=== PATIENT | male | born 1955 | race Caucasian/White ===

== ENCOUNTER 2020-06-10 07:34 | Inpatient (IN) | payer OTHER ==
[~2020-06-10] VITALS: Ht 182.9 cm; Wt 76.5 kg
[2020-06-10] MEDS ORDERED: SODIUM CHLORIDE 0.9% 1,000 ML IV ONE ×2 (08:17→15:30)
[2020-06-10 09:52] LABS: Urine Bacteria NONE SEEN /hpf (None Seen); Urine Blood 1+ /uL (Negative); Urine Hyaline Cast FEW /lpf (0 - 2); Urine Specific Gravity 1.014 (1.001-1.035); Urine WBC 5 /hpf (0 - 3)
[2020-06-10 10:56] LABS: Hematocrit 25.5 % (41.0-53.0); Hemoglobin 8.8 g/dL (13.5-17.5); Mean Corpuscular Hemoglobin 33.4 pg (28.0-32.0); Mean Corpuscular Hgb Conc. 34.5 g/dL (32.0-36.0); Mean Corpuscular Volume 96.7 fL (80.0-100.0); Platelet Count (auto) 248 10^3/uL (140-450); Red Blood Cells 2.63 10^6/uL (4.5-5.90); Red Cell Distribution Width 14.8 % (11.8-14.3); White Blood Cell 9.4 10^3/uL (4.4-10.8)
[2020-06-10 10:58] LABS: Potassium 3.6 mmol/L (3.5-5.1)
[2020-06-10 11:05] LABS: Band Neutrophils % (manual) 0; Basophils % (manual) 0 (0.0-2.0); Metamyelocytes % 0; Promyelocytes % 0
[2020-06-10 11:06] LABS: Blast Cells 0; Reactive Lymphocytes 0
[2020-06-10 11:08] LABS: Albumin 2.4 g/dL (3.4-5.0); BUN/Creatinine Ratio 21.2; Total Protein 10.6 g/dL (6.4-8.2)
[2020-06-10 11:17] LABS: Calcium 13.1 mg/dL (8.5-10.1)
[2020-06-10 11:40] LABS: Partial Thromboplastin Time 23.3 sec (23.0-31.2)
[2020-06-10 11:44] LABS: INR 1.39 (0.9-1.15)
[2020-06-10] MEDS ORDERED: ONDANSETRON HCL 4 MG/2 ML VIAL IV ONE (11:45)
[2020-06-10] MEDS ORDERED: MORPHINE SULFATE 4 MG/ML SYR/VIAL IV ONE (11:45)
[2020-06-10] MEDS ORDERED: PIPERACILLIN-TAZOB 3.375GM 100 ML IV ONE (12:15)
[2020-06-10] MEDS ORDERED: ASPirin 81 mg TAB PO ONE (12:15)
[2020-06-10] MEDS ORDERED: ENOXAPARIN SOD 80 MG/0.8ML SYRINGE SC ONE (12:15)
[2020-06-10] MEDS ORDERED: methylPREDNISolone SOD SUCC 40 MG/ML VL IV ONE (12:30)
[2020-06-10] MEDS ORDERED: CYCLOBENZAPRINE HCL 10 MG TAB PO ONE (12:30)
[2020-06-10] MEDS ORDERED: ATORVASTATIN 20 MG TAB PO ONE (12:30)
[2020-06-10] MEDS ORDERED: METOPROLOL SUCCINATE XL 50 MG TAB PO ONE (12:30)
[2020-06-10] MEDS ORDERED: CYCLOBENZAPRINE HCL 10 MG TAB PO PRN (12:30)
[2020-06-10] MEDS ORDERED: FUROSEMIDE 20 MG/2 ML VIAL IV ONE (12:30)
[2020-06-10] MEDS ORDERED: ALUM & MAG HYDROX-SIMETH LIQ(MAALOX) 30 ML PO PRN (12:45)
[2020-06-10] MEDS ORDERED: MORPHINE SULF INJ 2 MG/ML SYRINGE 1ML IV PRN ×2 (12:45)
[2020-06-10] MEDS ORDERED: ONDANSETRON HCL 4 MG/2 ML VIAL IV PRN (12:45)
[2020-06-10] MEDS ORDERED: DOCUSATE SOD 100 MG CAP PO PRN (12:45)
[2020-06-10] MEDS ORDERED: HYDROcodone-ACET 5/325MG TAB PO PRN (12:45)
[2020-06-10] MEDS ORDERED: DEXTROSE (50%) 50ML SYRG IV PRN (12:45)
[2020-06-10] MEDS ORDERED: NITROGLYCERIN 0.4 MG SL TAB SL PRN (12:45)
[2020-06-10] MEDS ORDERED: ACETAMINOPHEN 325 MG TAB PO PRN (12:45)
[2020-06-10] MEDS ORDERED: CALCITONIN 200 UNIT/SPRAY NASAL ONE ×2 (12:45→19:15)
[2020-06-10 12:54] LABS: Eosinophils % (manual) 1 (0-7); Lymphocytes % (manual) 4 (10.0-50.0); Monocytes % (manual) 14 (0-12); Myelocytes % 1
[2020-06-10] MEDS ORDERED: HALOPERIDOL LACTATE 5 MG/ML INJ VIAL IM ONE (13:15)
[2020-06-10] MEDS ORDERED: LORazepam 0.5 MG TAB PO ONE (13:15)
[2020-06-10] MEDS ORDERED: CARVEDILOL 3.125 MG TAB PO ONE (13:30)
[2020-06-10] MEDS ORDERED: AZITHROMYCIN 500MG/ 250ML 250 ML IV ONE (13:30)
[2020-06-10] MEDS ORDERED: LOSARTAN POTASSIUM 50 MG TAB PO ONE (13:30)
[2020-06-10 14:05] LABS: Alcohol, Urine < 3.0 mg/dL (0-10); Amphetamine Screen, Urine NEGATIVE (NEGATIVE); Barbiturate Scree,Urine NEGATIVE (NEGATIVE); Benzodiazephine Screen, Urine NEGATIVE (NEGATIVE); Cannabinoid Screen, Urine NEGATIVE (NEGATIVE); Cocaine Screen, Urine NEGATIVE (NEGATIVE); Phencyclidine Screen, Urine NEGATIVE (NEGATIVE)
[2020-06-10 14:13] LABS: Opiate Scree,Urine POSITIVE (NEGATIVE)
[2020-06-10] MEDS: methylPREDNISolone SOD SUCC 40 MG/ML VL IV SCH ×2 (14:23→22:26)
[2020-06-10] MEDS: SODIUM CHLORIDE 0.9% 1,000 ML IV SCH (15:04)
[2020-06-10] MEDS ORDERED: NOREPINEPHRINE 8 MG/250ML KIT 250 ML IV ONE (16:26)
[2020-06-10] MEDS: NOREPINEPHRINE 8 MG/250ML KIT 250 ML IV SCH (16:30)
[2020-06-10] MEDS: ACCU-CHEK COMFORT CURVE STRIP VI SCH ×2 (17:00→22:17)
[2020-06-10] MEDS: InsuLIN REG 1unit/0.01ml Soln (100units/ml) SC SCH ×2 (17:15→22:26)
[2020-06-10] MEDS: FUROSEMIDE 20 MG/2 ML VIAL IV SCH (18:00)
[2020-06-10] MEDS ORDERED: MIDAZOLAM DRIP 50 mg/50mL 50 ML IV ONE (18:29)
[2020-06-10] MEDS ORDERED: ETOMIDATE (2MG/ML) 20ML VIAL IV ONE ×2 (18:30)
[2020-06-10] MEDS ORDERED: SUCCINYLCHOLINE CHLORIDE 20 MG/ML 10ML VIAL IV ONE ×2 (18:30)
[2020-06-10] MEDS: PROPOFOL 100 ML IV SCH (18:49)
[2020-06-10] MEDS: MIDAZOLAM DRIP 50 mg/50mL 50 ML IV SCH ×2 (19:00→22:56)
[2020-06-10] MEDS ORDERED: PROPOFOL 100 ML IV ONE (19:07)
[2020-06-10] MEDS: ATORVASTATIN 20 MG TAB PO SCH (22:00)
[2020-06-10] MEDS: CARVEDILOL 3.125 MG TAB PO SCH (22:00)
[2020-06-10] MEDS ORDERED: methylPREDNISolone SOD SUCC 40 MG/ML VL IV SCH (22:00)
[2020-06-10 22:07] VITALS: BP 114/56
[2020-06-11] VITALS (7 sets, daily range): BP systolic 108–152; BP diastolic 58–73
[2020-06-11] MEDS: SODIUM CHLORIDE 0.9% 1,000 ML IV SCH ×2 (02:45→14:56)
[2020-06-11] MEDS: MIDAZOLAM DRIP 50 mg/50mL 50 ML IV SCH (06:28)
[2020-06-11] MEDS: NOREPINEPHRINE 8 MG/250ML KIT 250 ML IV SCH (06:28)
[2020-06-11] MEDS: InsuLIN REG 1unit/0.01ml Soln (100units/ml) SC SCH ×4 (07:00→22:00)
[2020-06-11] MEDS: ACCU-CHEK COMFORT CURVE STRIP VI SCH ×4 (07:00→22:25)
[2020-06-11] MEDS: FUROSEMIDE 20 MG/2 ML VIAL IV SCH (07:02)
[2020-06-11] MEDS: methylPREDNISolone SOD SUCC 40 MG/ML VL IV SCH (07:03)
[2020-06-11] MEDS ORDERED: cefTRIAXone 1GM/50ML D5W 50 ML IV SCH (09:00)
[2020-06-11] MEDS: CARVEDILOL 3.125 MG TAB PO SCH (10:00)
[2020-06-11] MEDS: ASPirin 81 mg TAB PO SCH (10:00)
[2020-06-11] MEDS ORDERED: LOSARTAN POTASSIUM 50 MG TAB PO SCH (10:00)
[2020-06-11] MEDS ORDERED: AZITHROMYCIN 500MG/ 250ML 250 ML IV SCH (10:00)
[2020-06-11] MEDS ORDERED: DOXYCYCLINE 100MG/250ML 250 ML IV ONE (14:15)
[2020-06-11 14:49] LABS: Basophils # (auto) 0 10 ^3/uL (0-0.2); Basophils % (auto) 0.1 % (0.0-2.0); Eosinophils # (auto) 0 10 ^3/uL (0-0.8); Lymphocytes # (auto) 0.5 10 ^3/uL (0.4-5.4); Lymphocytes % (auto) 4.5 % (10.0-50.0); White Blood Cell 11.5 10^3/uL (4.4-10.8)
[2020-06-11 14:52] LABS: Hematocrit 26.1 % (41.0-53.0); Hemoglobin 8.3 g/dL (13.5-17.5); Mean Corpuscular Hemoglobin 31.9 pg (28.0-32.0); Mean Corpuscular Hgb Conc. 31.9 g/dL (32.0-36.0); Mean Corpuscular Volume 100.1 fL (80.0-100.0); Monocytes # (auto) 1.2 10 ^3/uL (0-1.3); Monocytes % (auto) 10.6 % (0.0-12.0); Neutrophils # (auto) 9.8 10 ^3/uL (1.6-8.6); Neutrophils % (auto) 84.8 % (37.0-80.0); Nucleated Red Blood Cells % 0.1 %; Platelet Count (auto) 231 10^3/uL (140-450); Red Cell Distribution Width 14.9 % (11.8-14.3)
[2020-06-11 15:09] LABS: Albumin 1.9 g/dL (3.4-5.0); Calcium 11.4 mg/dL (8.5-10.1)
[2020-06-11 15:14] LABS: BUN/Creatinine Ratio 21.8; Bilirubin, Total 0.5 mg/dL (0.2-1.0); Total Protein 10.2 g/dL (6.4-8.2)
[2020-06-11] MEDS: MEROPENEM 500MG IVPB 50 ML IV SCH (17:02)
[2020-06-11] MEDS: PROPOFOL 100 ML IV SCH (17:08)
[2020-06-11] MEDS: ATORVASTATIN 20 MG TAB PO SCH (22:26)
[2020-06-11] MEDS: DOXYCYCLINE 100MG/250ML 250 ML IV SCH (22:27)
[2020-06-12] VITALS (59 sets, daily range): BP systolic 106–196; BP diastolic 64–121
[2020-06-12] MEDS: SODIUM CHLORIDE 0.9% 1,000 ML IV SCH ×2 (04:04→15:30)
[2020-06-12] MEDS: MEROPENEM 500MG IVPB 50 ML IV SCH ×2 (05:20→17:00)
[2020-06-12] MEDS: ACCU-CHEK COMFORT CURVE STRIP VI SCH ×4 (06:03→21:34)
[2020-06-12] MEDS: InsuLIN REG 1unit/0.01ml Soln (100units/ml) SC SCH ×4 (06:04→21:34)
--- NOTE | 2020-06-12 06:40 | NUR ---
Respiratory note: RECEIVED PATIENT ON V15 V200 VENT ORALLY INTUBATED WITH AND 8.0 ETT SECURED VIA SAM AT THE 24CM MARKING AT THE LIP, AND MECHANICALLY VENTILATED WITH THE CHARTED SETTINGS. SPO2 97%, LUNG SOUNDS DIM T/O, SMALL AMOUNT OF THICK PANDYA SECRETIONS WHEN SUCTIONED. SKIN IS WARM/DRY TO THE TOUCH AND IS INTACT NEAR SAM SITE. PITTING EDEMA NOTED IN BILATERAL UPPER EXTREMITIES. NO NEW AM CXR TO ASSESS. PATIENT IS UNRESPONSIVE TO BOTH VERBAL/TACTILE STIMULI AND IS SEDATED ON A VERSED DRIP. HE IS RESTING COMFORTABLY AND TOLERATING VENT WELL, NO CHANGES MADE. VENT PLUGGED INTO RED OUTLET AND ALL ALARMS ARE SET AND AUDIBLE. WILL CONTINUE TO ASSESS PATIENT WELL VENTILATOR FUNCTION. ABG DRAWN AT THIS TIME.
[2020-06-12 07:37] LABS: Hematocrit 28.2 % (41.0-53.0); Hemoglobin 9.4 g/dL (13.5-17.5); Mean Corpuscular Hgb Conc. 33.2 g/dL (32.0-36.0); Mean Corpuscular Volume 99.3 fL (80.0-100.0); Platelet Count (auto) 302 10^3/uL (140-450); Red Blood Cells 2.84 10^6/uL (4.5-5.90); Red Cell Distribution Width 14.7 % (11.8-14.3); White Blood Cell 14.8 10^3/uL (4.4-10.8)
[2020-06-12 07:46] LABS: Basophils % (manual) 0 (0.0-2.0); Blast Cells 0; Eosinophils % (manual) 0 (0-7); Metamyelocytes % 0; Myelocytes % 0; Promyelocytes % 0; Reactive Lymphocytes 0
[2020-06-12 07:55] LABS: Albumin 2.1 g/dL (3.4-5.0); Calcium 10.5 mg/dL (8.5-10.1); Potassium 3.8 mmol/L (3.5-5.1)
[2020-06-12 07:59] LABS: BUN/Creatinine Ratio 25.8; Bilirubin, Total 0.4 mg/dL (0.2-1.0); Total Protein 10.6 g/dL (6.4-8.2)
[2020-06-12 08:11] LABS: Band Neutrophils % (manual) 3; Lymphocytes % (manual) 1 (10.0-50.0); Monocytes % (manual) 4 (0-12)
[2020-06-12] MEDS: ASPirin 81 mg TAB PO SCH (10:00)
[2020-06-12] MEDS: DOXYCYCLINE 100MG/250ML 250 ML IV SCH ×2 (10:00→21:52)
--- NOTE | 2020-06-12 10:10 | NUR ---
ON UNIT Patient brought to ICU. Moved to ICU bed without issues. Patient attached to ICU monitors and vent. Physical assessment complete.
--- NOTE | 2020-06-12 10:45 | NUR ---
ROUNDING Dr. Thomas rounding.
[2020-06-12 11:11] LABS: Lactic Acid w/Reflex 2.3 mmol/L (0.4-2.0)
[2020-06-12] MEDS: amLODIPine BESYLATE 5 MG TAB PO SCH (11:45)
--- NOTE | 2020-06-12 11:45 | NUR ---
ROUNDING Dr. Justa hall.
--- NOTE | 2020-06-12 12:27 | NUR ---
FAMILY UPDATED Spoke to Casie, patients daughter, updated on patient status. All questions and concerns addressed. Daughter gave me information about patients oncologist, Dr. Stinson [phone].
[2020-06-12] MEDS: MIDAZOLAM DRIP 50 mg/50mL 50 ML IV SCH ×2 (13:00→18:31)
--- NOTE | 2020-06-12 13:55 | NUR ---
SPOKE TO [facility] Patient is COVID negative. [facility] double typing checker, patient is negative from rapid and send out.
[2020-06-12] MEDS: NOREPINEPHRINE 8 MG/250ML KIT 250 ML IV SCH (14:02)
[2020-06-12] MEDS ORDERED: ENOXAPARIN SOD 40 MG/0.4 ML SYRINGE SC ONE (15:30)
[2020-06-12 16:06] LABS: Amylase 25 U/L (25-115); Lipase 801 U/L (73-393)
[2020-06-12] MEDS: PROPOFOL 100 ML IV SCH (18:49)
--- NOTE | 2020-06-12 19:30 | NUR ---
Opening Shift Note Received pt on mechanical ventilator sedated on versed. Pt does have positive cough/gag and will breathe over ventilator when stimulated. Pupils 4 and sluggish. Full assessment done see interventions. Gaspar catheter intact draining to gravity. All alarms on and audible. Will continue to monitor closely.
[2020-06-12] MEDS: ATORVASTATIN 20 MG TAB PO SCH (21:53)
--- NOTE | 2020-06-12 22:00 | NUR ---
[facility] Hospitalist. Pt maxed on versed and alarming ventilator while stacking breaths. Elevated B/P.
--- NOTE | 2020-06-12 22:38 | NUR ---
Hospitalist returned call. New order for Fent. Hospitalist aware of elevated b/p sys in 190's. Stated Fentanyl should decrease B/P.
[2020-06-12] MEDS: fentaNYL Drip 2500mCg/250mlNS 250 ML IV SCH (22:39)
[2020-06-12] MEDS ORDERED: fentaNYL Drip 2500mCg/250mlNS 250 ML IV ONE (22:43)
--- NOTE | 2020-06-12 23:51 | NUR ---
B/P sys in 140's now with added sedation.
[2020-06-13] VITALS (103 sets, daily range): BP systolic 74–182; BP diastolic 36–101
[2020-06-13] MEDS: MIDAZOLAM DRIP 50 mg/50mL 50 ML IV SCH ×2 (03:25→07:26)
[2020-06-13 04:13] LABS: Basophils # (auto) 0 10 ^3/uL (0-0.2); Basophils % (auto) 0.1 % (0.0-2.0); Eosinophils # (auto) 0 10 ^3/uL (0-0.8); Hemoglobin 9.9 g/dL (13.5-17.5); Lymphocytes # (auto) 0.5 10 ^3/uL (0.4-5.4); Lymphocytes % (auto) 3.3 % (10.0-50.0); Mean Corpuscular Volume 99.8 fL (80.0-100.0); Monocytes # (auto) 2.2 10 ^3/uL (0-1.3); Monocytes % (auto) 13.5 % (0.0-12.0); Neutrophils # (auto) 13.7 10 ^3/uL (1.6-8.6); Neutrophils % (auto) 83.1 % (37.0-80.0); Nucleated Red Blood Cells % 0.1 %; Platelet Count (auto) 341 10^3/uL (140-450); Red Blood Cells 3.01 10^6/uL (4.5-5.90); Red Cell Distribution Width 15.2 % (11.8-14.3); White Blood Cell 16.4 10^3/uL (4.4-10.8)
[2020-06-13 04:31] LABS: Potassium 4.4 mmol/L (3.5-5.1)
[2020-06-13 04:37] LABS: Calcium 9.9 mg/dL (8.5-10.1)
[2020-06-13] MEDS: MEROPENEM 500MG IVPB 50 ML IV SCH (05:00)
[2020-06-13] MEDS: HYDROmorphone HCL 2 MG/ML VL IV PRN (05:30)
--- NOTE | 2020-06-13 05:30 | NUR ---
Elimination/Assessment Pt's urine output noted to be minimal. Pt's lower abdomen firm to palpation. Walker catheter hard to flush. Walker catheter taken out with clogged tube. New walker catheter inserted with immediate urine output of 800 cc's. Urine yellow and cloudy.
--- NOTE | 2020-06-13 06:22 | NUR ---
B/P systolic in the 60's, levophed gtt started and titrating down on sedation. See IV spreadsheet for details.
[2020-06-13] MEDS: InsuLIN REG 1unit/0.01ml Soln (100units/ml) SC SCH ×4 (07:00→22:00)
[2020-06-13] MEDS: ACCU-CHEK COMFORT CURVE STRIP VI SCH ×4 (07:26→22:00)
--- NOTE | 2020-06-13 07:30 | NUR ---
OPENING NOTE RECEIVED REPORT FROM BONDING MACHINE OPERATOR RN. PT IS INTUBATED AND SEDATED. NO S/S OF DISTRESS NOTED AT THIS TIME. VS STABLE. BED IS LOCKED AT LOWEST POSITION AND SIDE RAILS ARE UP. WILL CONTINUE TO MONITOR.
--- NOTE | 2020-06-13 09:15 | NUR ---
DR CRANDALL AT BEDSIDE DISCUSSED PT STATUS AND POC. NO NEW ORDERS RECEIVED, WILL CONTINUE TO MONITOR.
[2020-06-13] MEDS: ASPirin 81 mg TAB PO SCH (09:35)
[2020-06-13] MEDS: LINEZOLID 600MG/300ML 300 ML IV SCH ×3 (09:35→22:00)
--- NOTE | 2020-06-13 09:45 | NUR ---
DR ELIZONDO AT BEDSIDE DISCUSSED PT STATUS AND POC. DR RECOMMENDED SEDATION VACATION AND CPAP TRIAL. OKAY WITH FENTANYL STAYING ON AT A LOW DOSE. WILL CONTINUE TO MONITOR.
[2020-06-13] MEDS ORDERED: ENOXAPARIN SOD 40 MG/0.4 ML SYRINGE SC SCH (10:00)
[2020-06-13] MEDS: amLODIPine BESYLATE 5 MG TAB PO SCH (10:00)
--- NOTE | 2020-06-13 10:30 | NUR ---
costumer at bedside pictures taken by pattern chain maker supervisor
--- NOTE | 2020-06-13 10:30 | NUR ---
DAUGHTER ON THE PHONE DISCUSSED PT STATUS AND POC. ALL QUESTIONS AND CONCERNS ADDRESSED.
--- NOTE | 2020-06-13 10:35 | NUR ---
DR ADAMS DISCUSSED PT STATUS AND POC. PER DR ADAMS IF PATIENT DOES NOT TOLERATE CPAP PT TO BE SEDATED AGAIN AND STARTED ON TUBE FEEDING PER DIETARY RECOMMENDATION.
--- NOTE | 2020-06-13 10:55 | NUR ---
RADHA FROM DIETARY AT BEDSIDE RADHA RECOMMENDS GLUCERNA 1.2CAL WITH A GOAL RATE OF 70ML/HR.
--- NOTE | 2020-06-13 11:00 | NUR ---
WOUND CARE NOTE: IN TO SEE PATIENT AT THIS TIME PER WOUND CARE CONSULT REQUEST. PATIENT WAS NOTED UPON ASSESSMENT TO HAVE MULTIPLE SKIN INTEGRITY ISSUES. PATIENT WAS ADMITTED TO [facility] WITH DIAGNOSIS OF ACUTE INTERSTITIAL BILATERAL MULTIFOCAL PNA WITH GROUND GLASS IMAGING. PATIENT IS INTUBATED, SEDATED. CURRENT RADHA SCORE IS 11. PATIENT PRESENTED TO ER AFTER FALLING WHILE AMBULATING WITH HIS WALKER. HE LANDED ON HIS BACK ON THE FLOOR. UNSURE OF THE AMOUNT OF TIME ON FLOOR. PATIENT HAS MULTIPLE CO-MORBIDITIES, INCLUDING: ACUTE KIDNEY INJURY WITH CHRONIC KIDNEY DISEASE, HYPER CALCEMIA, MULTIPLE MYELOMA, ACUTE RESPIRATORY FAILURE, PNA, CAD WITH S/P CABG, ANEMIA, MULTIPLE STRESS FRACTURES TO HIS SPINE UPON RADIOLOGICAL STUDIES. PATIENT IS RECEIVING VASOPRESSORS TO MAINTAIN HIS BLOOD PRESSURE. PATIENT RESTING ON ICU LOW AIRLOSS MATTRESS. HE IS NOTED TO HAVE MOTTLING/CYANOTIC SKIN TO BILATERAL FEET/HEELS. SKIN IS COLD TO TOUCH, BLUE/PURPLE MOTTLING NOTED. RIGHT ANKLE HAS SMALL 1 X 1 CM INTACT DTI NOTED. LEFT ALL OPEN TO AIR, FEET/HEELS OFFLOADED UTILIZING PILLOWS. PATIENT ALSO NOTED TO HAVE ERYTHEMIC SACRUM/BUTTOCKS, WITH BRIGHT RED BLANCHABLE SKIN TO DARK RED TO LIGHT PURPLE NOTED THAT IS NON BLANCHING. THERE IS SMALL SERUM BLISTER TO THE RIGHT SACRUM, OPEN BLISTER TO THE LEFT BUTTOCK. ZGUARD, OPTIFOAM GENTLE SACRAL DRESSING APPLIED. SKIN/WOUND CARE PLAN IMPLEMENTED. PATIENT WOULD BENEFIT FROM: SIDE TO SIDE ONLY POSITIONING, AVOIDING SUPINE; FREQUENT TURN SCHEDULE, Q 1-2 HOURS, PRN CONDITION PERMITS, WITH PRESSURE REDISTRIBUTION USING PILLOWS/WEDGES; BID/PRN APPLICATION WITH MOISTURE BARRIER CREAM, OPTIFOAM GENTLE SACRAL DRESSING, DIETARY CONSULT FOR PRESSURE INJURY TO SACRUM/INTUBATION STATUS, SKIN/WOUND CARE PLAN, CONTINUE TO REST ON LOW AIRLOSS ICU MATTRESS, TRANSFERRING TO AIR MATTRESS UPON TRANSFER TO REINALDO OR TELE, CONTINUED MONITORING BY WOUND CARE TEAM. Addendum: 06/13/20 at 1448 by Prachi Falcon RN Amended: Links added.
--- NOTE | 2020-06-13 11:14 | NUR ---
PICC LINE CONSENT TWO NURSE TELEPHONE CONSENT WITH DAUGHTER IVONNE LAWS. AMANDA LORENZ AND JOIE LORENZ
--- NOTE | 2020-06-13 13:15 | NUR ---
DAUGHTER IVONNE ON THE PHONE UPDATED PT STATUS AND POC. ALL QUESTIONS AND CONCERNS ADDRESSED.
--- NOTE | 2020-06-13 15:39 | NUR ---
Nutrition Assessment Notes Please refer to link for full assessment notes. Est Energy needs: 0720-6148 kcals (23-25 kcal/kgBW) Est Protein needs: 102-136 gms/day (1.2-1.6 gm/kgBW) d/t respiratory distress Will continue to monitor and reassess prn. Addendum: 06/13/20 at [address] Amended: Links added.
--- NOTE | 2020-06-13 15:45 | NUR ---
DAUGHTER IVONNE ON THE PHONE UPDATED PT STATUS AND POC. ALL QUESTIONS AND CONCERNS ADDRESSED.
[2020-06-13 16:06] LABS: INR 1.32 (0.9-1.15)
[2020-06-13] MEDS: fentaNYL Drip 2500mCg/250mlNS 250 ML IV SCH (16:26)
[2020-06-13] MEDS: NOREPINEPHRINE 8 MG/250ML KIT 250 ML IV SCH (16:30)
--- NOTE | 2020-06-13 17:00 | NUR ---
PICC LINE RN AT BEDSIDE KESHA CHA AT BEDSIDE FOR PICC LINE PLACEMENT
[2020-06-13] MEDS: SODIUM CHLORIDE 0.9% 1,000 ML IV SCH (17:53)
[2020-06-13] MEDS: MEROPENEM 1GM IVPB 100 ML IV SCH (17:53)
[2020-06-13] MEDS ORDERED: LIDOCAINE 1% (LOCAL ANESTH.) PF 5ml SDV ID ONE (18:00)
--- NOTE | 2020-06-13 18:04 | NUR ---
PICC line placement Patient significant other educated on need for PICC line placement. All risks and benefits explained and all questions and concerns addressed prior to procedure. Noted past medical history and allergies with no contraindications. INR and Plt counts within acceptable range. 5 fr PICC line inserted via RIGHT BRACHIAL vein using [employer] US and Tip Location System. Sterile technique with maximum barrier precautions utilized. Blood return obtained from each of THE 3 lumens and each flushed easily with NS using proper technique. PICC secured with Stat-lock; biodisc and occlusive dressing applied. Stat portable chest x-ray obtained for PICC tip placement. *Baseline Arm Circumference 30 CM, INTERNAL LENGTH 43 CM, EXTERNAL LENGTH 0 CM. PICC lot # [id number]. Note:
--- NOTE | 2020-06-13 18:06 | NUR ---
OK to use PICC line Xray completed. OK to use PICC line . PRIMARY RN NOTIFIED
[2020-06-13] MEDS ORDERED: Glucerna 1.2 Cal 1Liter BOTTLE GT SCH (18:15)
--- NOTE | 2020-06-13 18:29 | NUR ---
daughter on the phone updated pt status and poc. all questions and concerns addressed.
--- NOTE | 2020-06-13 19:45 | NUR ---
Opening Shift Note Received pt on mechanical ventilator sedated on Fentanyl. Pt does have positive cough/gag, pupils 3 and brisk. Full assessment done see interventions. Gaspar catheter intact draining to gravity. All alarms on and audible. Will continue to monitor closely.
[2020-06-13] MEDS: SODIUM CHLOR 0.9% PF (SALINE LOCK) 10ML VIAL/SYR IV SCH (22:00)
[2020-06-13] MEDS: ENOXAPARIN SOD 80 MG/0.8ML SYRINGE SC SCH (22:00)
[2020-06-13] MEDS: ATORVASTATIN 20 MG TAB PO SCH (22:00)
--- NOTE | 2020-06-13 22:30 | NUR ---
Family Daughter called for update. Password verified. and update given. all questions and concerns addressed at this time
[2020-06-14] VITALS (103 sets, daily range): BP systolic 91–156; BP diastolic 44–80
[2020-06-14] MEDS: SODIUM CHLORIDE 0.9% 1,000 ML IV SCH ×3 (00:50→14:11)
[2020-06-14 04:31] LABS: Basophils # (auto) 0 10 ^3/uL (0-0.2); Basophils % (auto) 0.1 % (0.0-2.0); Eosinophils # (auto) 0 10 ^3/uL (0-0.8); Hemoglobin 7.7 g/dL (13.5-17.5); Lymphocytes # (auto) 0.4 10 ^3/uL (0.4-5.4); Lymphocytes % (auto) 3.8 % (10.0-50.0); Monocytes # (auto) 1.3 10 ^3/uL (0-1.3); Neutrophils % (auto) 82.1 % (37.0-80.0)
[2020-06-14 04:33] LABS: Hematocrit 22.7 % (41.0-53.0); Mean Corpuscular Hemoglobin 33.5 pg (28.0-32.0); Mean Corpuscular Hgb Conc. 33.9 g/dL (32.0-36.0); Mean Corpuscular Volume 98.7 fL (80.0-100.0); Neutrophils # (auto) 7.8 10 ^3/uL (1.6-8.6); Platelet Count (auto) 267 10^3/uL (140-450); Red Cell Distribution Width 14.9 % (11.8-14.3); White Blood Cell 9.5 10^3/uL (4.4-10.8)
[2020-06-14 04:49] LABS: BUN/Creatinine Ratio 38.9; Calcium 9.3 mg/dL (8.5-10.1); Potassium 3.8 mmol/L (3.5-5.1)
--- NOTE | 2020-06-14 04:51 | NUR ---
Cares Pt given complete bed bath and linen change. Pt tolerated well.
[2020-06-14] MEDS: MEROPENEM 1GM IVPB 100 ML IV SCH ×2 (05:19→17:02)
[2020-06-14] MEDS: InsuLIN REG 1unit/0.01ml Soln (100units/ml) SC SCH ×4 (06:14→21:30)
[2020-06-14] MEDS: ACCU-CHEK COMFORT CURVE STRIP VI SCH ×4 (06:14→21:30)
[2020-06-14] MEDS: PROPOFOL 100 ML IV SCH ×2 (07:43→18:49)
--- NOTE | 2020-06-14 08:45 | NUR ---
DR HANNAH AT BEDSIDE DISCUSSED PT STATUS AND POC. NEW ORDERS RECEIVED, WILL CONTINUE TO MONITOR.
--- NOTE | 2020-06-14 08:50 | NUR ---
DR ELIZONDO AT BEDSIDE DISCUSSED PT STATUS AND POC. NO NEW ORDERS, WILL CONTINUE TO MONITOR.
[2020-06-14] MEDS: LINEZOLID 600MG/300ML 300 ML IV SCH ×2 (09:25→21:30)
[2020-06-14] MEDS: ENOXAPARIN SOD 80 MG/0.8ML SYRINGE SC SCH (09:25)
[2020-06-14] MEDS: amLODIPine BESYLATE 5 MG TAB PO SCH (09:25)
[2020-06-14] MEDS: ASPirin 81 mg TAB PO SCH (09:25)
[2020-06-14] MEDS: SODIUM CHLOR 0.9% PF (SALINE LOCK) 10ML VIAL/SYR IV SCH ×2 (09:26→21:30)
[2020-06-14] MEDS: HYDROmorphone HCL 2 MG/ML VL IV PRN ×3 (09:40→18:36)
--- NOTE | 2020-06-14 09:52 | NUR ---
DAUGHTER ON THE PHONE DISCUSSED PT STATUS AND POC. ALL QUESTIONS AND CONCERNS ADDRESSED.
--- NOTE | 2020-06-14 12:43 | NUR ---
LABS ORDERED SENT TO LAB
[2020-06-14] MEDS ORDERED: PANTOPRAZOLE 40 MG/10 ML VIAL INJ IV ONE (12:45)
--- NOTE | 2020-06-14 12:45 | NUR ---
DR ADAMS AT BEDSIDE DISCUSSED PT STATUS AND POC. NEW ORDERS RECEIVED, WILL CARRY OUT.
[2020-06-14 12:51] LABS: Basophils # (auto) 0 10 ^3/uL (0-0.2); Eosinophils # (auto) 0 10 ^3/uL (0-0.8)
[2020-06-14 12:53] LABS: Hematocrit 22.6 % (41.0-53.0); Hemoglobin 7.5 g/dL (13.5-17.5); Lymphocytes # (auto) 0.4 10 ^3/uL (0.4-5.4); Lymphocytes % (auto) 3.4 % (10.0-50.0); Mean Corpuscular Hemoglobin 32.9 pg (28.0-32.0); Mean Corpuscular Hgb Conc. 33.3 g/dL (32.0-36.0); Mean Corpuscular Volume 98.6 fL (80.0-100.0); Monocytes # (auto) 1.6 10 ^3/uL (0-1.3); Neutrophils # (auto) 9.3 10 ^3/uL (1.6-8.6); Neutrophils % (auto) 82.6 % (37.0-80.0); Platelet Count (auto) 273 10^3/uL (140-450); Red Blood Cells 2.29 10^6/uL (4.5-5.90); Red Cell Distribution Width 14.9 % (11.8-14.3); White Blood Cell 11.2 10^3/uL (4.4-10.8)
--- NOTE | 2020-06-14 12:55 | NUR ---
VANNESA/VQ SCAN PER VANNESA FROM RADIOLOGY, THEY DO NOT DO VQ SCANS ON INTUBATED PATIENTS. WILL RELAY INFORMATION TO
--- NOTE | 2020-06-14 13:15 | NUR ---
US AT BEDSIDE FOR BILATERAL EXTREMITY STUDE
--- NOTE | 2020-06-14 13:36 | NUR ---
assessment Patient is a 64 year old male who is on a vent in ICU. Per patients daughter Chasidy prior to admission patient lived home with family and needed assistance. Per Chasidy patients PCP is Dr Calderón in [facility]. Chasidy informed me patient uses a fww at home. Per Chasidy patient has been declining for the past 2 weeks and on last Thursday patient had a fall so family called 911. Patient was to start chemo on 06/11/2020, but could not start due to admission. I informed Chasidy I will continue to monitor and follow up as appropriate. Chasidy verbalized understanding. Addendum: 06/14/20 at 1345 by Malena DODD Amended: Links added.
[2020-06-14] MEDS: NOREPINEPHRINE 8 MG/250ML KIT 250 ML IV SCH (16:30)
--- NOTE | 2020-06-14 17:54 | NUR ---
DAUGHTER ON THE PHONE (IVONNE) DISCUSSED PT STATUS AND POC. ALL QUESTIONS AND CONCERNS ADDRESSED.
[2020-06-14] MEDS: MIDAZOLAM DRIP 50 mg/50mL 50 ML IV SCH (18:30)
[2020-06-14] MEDS: ATORVASTATIN 20 MG TAB PO SCH (21:30)
[2020-06-14] MEDS: PANTOPRAZOLE 40 MG/10 ML VIAL INJ IV SCH (21:30)
--- NOTE | 2020-06-14 22:30 | NUR ---
Family Received phone call from daughter, updated on POC. All questions and concerns addressed at this time.
[2020-06-14] MEDS: fentaNYL Drip 2500mCg/250mlNS 250 ML IV SCH (22:39)
--- NOTE | 2020-06-14 23:40 | NUR ---
Pt more awake and moving extremities up and facial grimaces while alarming ventilator. Fentanyl gtt restarted at 25mcg for pain management. Pt also being medicated with Dilaudid 1mg q 4hr.
[2020-06-15] VITALS (99 sets, daily range): BP systolic 86–160; BP diastolic 44–87
[2020-06-15] MEDS: HYDROmorphone HCL 2 MG/ML VL IV PRN ×2 (02:10→04:51)
--- NOTE | 2020-06-15 04:38 | NUR ---
Cares Pt given bed bath and linen change. Skin integrity assessed for any changes; none noted. Pt facial grimacing and alarming ventilator. Does not follow commands. Fentanyl titrated for comfort.
[2020-06-15 04:47] LABS: Basophils # (auto) 0 10 ^3/uL (0-0.2); Eosinophils # (auto) 0 10 ^3/uL (0-0.8); Eosinophils % (auto) 0.1 % (0.0-7.0); Hemoglobin 7.9 g/dL (13.5-17.5); Neutrophils # (auto) 10.8 10 ^3/uL (1.6-8.6)
[2020-06-15 04:51] LABS: Hematocrit 23.7 % (41.0-53.0); Lymphocytes # (auto) 0.5 10 ^3/uL (0.4-5.4); Lymphocytes % (auto) 4.2 % (10.0-50.0); Mean Corpuscular Hemoglobin 33.1 pg (28.0-32.0); Mean Corpuscular Hgb Conc. 33.4 g/dL (32.0-36.0); Mean Corpuscular Volume 99.1 fL (80.0-100.0); Monocytes # (auto) 1.4 10 ^3/uL (0-1.3); Monocytes % (auto) 10.8 % (0.0-12.0); Neutrophils % (auto) 84.9 % (37.0-80.0); Nucleated Red Blood Cells % 0.1 %; Platelet Count (auto) 315 10^3/uL (140-450); White Blood Cell 12.7 10^3/uL (4.4-10.8)
[2020-06-15 05:07] LABS: Calcium 9.8 mg/dL (8.5-10.1); Potassium 3.7 mmol/L (3.5-5.1)
[2020-06-15 05:10] LABS: BUN/Creatinine Ratio 39.3
--- NOTE | 2020-06-15 05:24 | NUR ---
Care endorsed to KELECHI Chapman
[2020-06-15] MEDS: MEROPENEM 1GM IVPB 100 ML IV SCH (05:28)
[2020-06-15] MEDS: SODIUM CHLORIDE 0.9% 1,000 ML IV SCH (05:38)
--- NOTE | 2020-06-15 06:43 | NUR ---
SPOKE WITH IVONNE (DAUGHTER) PASS PROVIDED UPDATED ON PATIENTS STATUS AND POC, ALL QUESTIONS AND CONCERNS ADDRESSED. BRYAN VERBALIZED UNDERSTANDING
[2020-06-15] MEDS: ACCU-CHEK COMFORT CURVE STRIP VI SCH (06:44)
[2020-06-15] MEDS: InsuLIN REG 1unit/0.01ml Soln (100units/ml) SC SCH (06:44)
--- NOTE | 2020-06-15 09:00 | NUR ---
FAMILY UPDATED TALKED WITH PATIENT'S DAUGHTER. UPDATED HER ON PT'S CURRENT STATUS, LABS AND POC FOR TODAY.
[2020-06-15] MEDS: SODIUM CHLOR 0.9% PF (SALINE LOCK) 10ML VIAL/SYR IV SCH ×2 (09:17→22:02)
[2020-06-15] MEDS: amLODIPine BESYLATE 5 MG TAB PO SCH (10:00)
[2020-06-15] MEDS: LINEZOLID 600MG/300ML 300 ML IV SCH (10:38)
[2020-06-15] MEDS: PANTOPRAZOLE 40 MG/10 ML VIAL INJ IV SCH ×2 (10:38→22:02)
[2020-06-15] MEDS: ASPirin 81 mg TAB PO SCH (10:39)
--- NOTE | 2020-06-15 11:00 | NUR ---
DR. ELIZONDO AT BEDSIDE: UPDATE MD UPDATED ON PT'S STATUS, LABS AND POC FOR TODAY. NO ORDERS GIVEN FOR CPAP TODAY. WILL CONTINUE TO MONITOR PATIENT. ASKED MD TO CALL PATIENT DAUGHTER FOR UPDATE, IF SHE CAN.
[2020-06-15] MEDS: NOREPINEPHRINE 8 MG/250ML KIT 250 ML IV SCH (12:57)
--- NOTE | 2020-06-15 14:21 | NUR ---
DR. OCONNOR AT BEDSIDE: UPDATE MD UPDATED ON PT'S CURRENT STATUS, LABS AND POC FOR TODAY. WILL CARRY OUT ANY ORDERS GIVEN. CONTINUE CARE.
[2020-06-15 14:32] LABS: Albumin 1.9 g/dL (3.4-5.0)
[2020-06-15 14:36] LABS: Pre Albumin 15.2 mg/dL (20.0-40.0)
--- NOTE | 2020-06-15 15:00 | NUR ---
TUBE FEEDINGS ON HOLD CHECKED RESIDUALS FROM NGT AT THIS TIME. MODERATE AMOUNT OF DARK GREEN BILE FROM NGT NOTED. HOOKED NGT TO LIS. WILL INFORM MD. CONTINUE CARE.
--- NOTE | 2020-06-15 15:06 | NUR ---
Nutrition Followup Notes Pt wt is 85.0 kg Pt is sedated, intubated NPO since 06/12 per RN doc. Per RN, pt failed CPAP trial, will start pt on Glucerna 1.2 @ 10ml/hr today, increasing as tolerated to reach goal rate of 70ml/hr. Est Energy needs: 0146-4514 kcals (23-25 kcal/kgBW) Est Protein needs: 102-136 gms/day (1.2-1.6 gm/kgBW) d/t respiratory distress Will continue to monitor and reassess prn. LABS: BUN 72 H, CR 1.83 H, GFR 40 L, GLUC 108 H, ALB 2.6 L GI: Last BM unknown per RN doc BS: 12 high risk. Refer to wound assessment report for full details PES: Altered nutrition related lab values r/t current/chronic medical condition aeb elev RFTs, low GFR, severe hypoalbuminemia Comments Will continue to monitor PO status, skin status, pertinent labs and weight trends. Will f/u in 2-3 days. 1) Continue to carefully monitor pt NPO status 2) If pt remains NPO for the next 48 hours, consider EN nutrition support Glucerna 1.2 @ 70ml/hr goal rate (d/t pt compromised kidney function) 3) If albumin continues trending down with improved RFts, consider Prostat 1 pkt bid 4) Gradually advance pt to oral diet when medically feasible and as tolerated 5) Continue current plan of care
[2020-06-15] MEDS: cefTRIAXone 1GM/50ML D5W 50 ML IV SCH (15:07)
--- NOTE | 2020-06-15 18:29 | NUR ---
Respiratory note: RECEIVED PT ON VENT V15,VENT CONNECTED TO RED OUTLET AND O2 SOURCE. ALARMS ARE SET AND AUDIBLE. AMBU BAG AND MASK AT BEDSIDE. BS ARE ARE DIMINISHED CLEAR T/O, NO SX DONE AT THIS TIME. CURRENT PT TEMP READING AT 97.7F. WILL CONTINUE TO MONITOR.
[2020-06-15] MEDS: MIDAZOLAM DRIP 50 mg/50mL 50 ML IV SCH (18:30)
[2020-06-15] MEDS: PROPOFOL 100 ML IV SCH (18:49)
--- NOTE | 2020-06-15 20:00 | NUR ---
OPENING NOTE PATIENT IS SEDATED AND VENTILATED, NO SIGN OF SOB OR ACCESSORY MUSCLE USE. SATURATING IN HIGH 90'S. ON LEVO (WILL TITRATE DOWN ACCORDING TO PROTOCOL), QUICK CAP REFILL, PULSES ARE PRESENT, SKIN WARM TO TOUCH, SKIN COLOR NORMAL FOR HIS ETHNIC GROUP WITH PINK UNDERTONE, VILLAFANA DRAINING CLEAR YELLOW URINE DOWN GRAVITY, FREE OF KINKS, URINE BLADDER NOT DISTENDED. WILL TITRATED SEDATION PER PROTOCOL FOR POSSIBLE AM CPAP TRIAL. BED IN LOWEST POSITION, BED RAILS X4 FOR SAFETY. WILL CONTINUE TO MONITOR PATIENT AND PROVIDE CARES ORDERED AND NEEDED.
--- NOTE | 2020-06-15 20:10 | NUR ---
WARMING MEASURES IMPLEMENTED COVERED PATIENT WITH BLANKET, TURNED ON CEILING HEAT LAMP WILL CONTINUE TO MONITOR TEMPERATURE.
--- NOTE | 2020-06-15 20:16 | NUR ---
Respiratory note: AT BEDSIDE FOR ROUTINE VENT CHECK. PTS CURRENT TEMP IS 97.7F. NO CHANGES MADE WILL CONTINUE TO MONITOR Q2H AND NEEDED.
--- NOTE | 2020-06-15 20:59 | NUR ---
ASK MD TO CALL IVONNE (DAUGHTER) UPDATED IVONNE ON PATIENTS STATUS AND POC, MOST OF QUESTIONS AND CONCERNS ADDRESSED. IVONNE IS REQUESTING MD TO CALL, SHE HAS SPECIFIC QUESTIONS ON HER FATHER'S CONDITION.
--- NOTE | 2020-06-15 21:51 | NUR ---
HOLDING SEDATION VACATION PATIENT WAS RECENTLY RE-SEDATED WILL DECREASE SEDATION IN A MORNING FOR CPAP TRIAL Addendum: 06/15/20 at 2152 by ROBB RUIZ RN RN Amended: Links added.
[2020-06-15] MEDS: ATORVASTATIN 20 MG TAB PO SCH (22:02)
--- NOTE | 2020-06-15 22:09 | NUR ---
Respiratory note: AT BEDSIDE FOR ROUTINE VENT CHECK. PTS CURRENT TEMP IS 98.6F. NO CHANGES MADE WILL CONTINUE TO MONITOR Q2H AND NEEDED.
[2020-06-15] MEDS: fentaNYL Drip 2500mCg/250mlNS 250 ML IV SCH (22:39)
--- NOTE | 2020-06-15 22:40 | NUR ---
STARTED FEEDING STARTING RATE 20 CC/HR HYPOACTIVE BOWEL SOUNDS. RESIDUAL 20 CC GREEN DARK BILE HOB 35 DEGREES LOCATION OF NG CONFIRMED BY AUSCULTATION AND ASPIRATION. NG TUBE LOCATION WAS PREVIOUSLY CONFIRMED BY XRAY
--- NOTE | 2020-06-15 23:10 | NUR ---
STOPPED WARMING MEASURES
[2020-06-16] VITALS (105 sets, daily range): BP systolic 98–202; BP diastolic 47–94
--- NOTE | 2020-06-16 00:31 | NUR ---
Respiratory note: AT BEDSIDE FOR ROUTINE VENT CHECK. PTS CURRENT TEMP IS 98.8F. SXD VIA ETT FOR NO RETURN. NO CHANGES MADE WILL CONTINUE TO MONITOR Q2H AND NEEDED.
[2020-06-16] MEDS: MIDAZOLAM DRIP 50 mg/50mL 50 ML IV SCH (01:36)
--- NOTE | 2020-06-16 02:08 | NUR ---
Respiratory note: AT BEDSIDE FOR ROUTINE VENT CHECK. PTS CURRENT TEMP IS 98.8F. NO CHANGES MADE WILL CONTINUE TO MONITOR Q2H AND NEEDED.
--- NOTE | 2020-06-16 03:18 | NUR ---
STOPPED FEEDING FOR CPAP AM RATE WAS 40 CC/ML RESIDUAL 3 CC
--- NOTE | 2020-06-16 04:18 | NUR ---
CARES PARTIAL BED LINEN CHANGE, PARTIAL BED BATH. SACRAL WOUND TEAR CLEANED AND DRESSED DESCRIBED IN MD NOTE. PATIENT TOLERATED CARE WELL.
[2020-06-16 04:19] LABS: Basophils # (auto) 0 10 ^3/uL (0-0.2); Basophils % (auto) 0.1 % (0.0-2.0); Eosinophils % (auto) 0.5 % (0.0-7.0); Lymphocytes # (auto) 0.4 10 ^3/uL (0.4-5.4); Platelet Count (auto) 304 10^3/uL (140-450); White Blood Cell 10.7 10^3/uL (4.4-10.8)
[2020-06-16 04:21] LABS: Eosinophils # (auto) 0.1 10 ^3/uL (0-0.8); Hematocrit 22.9 % (41.0-53.0); Hemoglobin 7.8 g/dL (13.5-17.5); Lymphocytes % (auto) 3.6 % (10.0-50.0); Mean Corpuscular Hemoglobin 33.6 pg (28.0-32.0); Mean Corpuscular Volume 98.6 fL (80.0-100.0); Monocytes # (auto) 1.3 10 ^3/uL (0-1.3); Monocytes % (auto) 11.8 % (0.0-12.0); Red Blood Cells 2.32 10^6/uL (4.5-5.90)
[2020-06-16 04:37] LABS: Potassium 3.7 mmol/L (3.5-5.1)
[2020-06-16 04:43] LABS: BUN/Creatinine Ratio 37.2; Calcium 10.3 mg/dL (8.5-10.1)
[2020-06-16] MEDS: fentaNYL Drip 2500mCg/250mlNS 250 ML IV SCH ×2 (06:05→18:23)
--- NOTE | 2020-06-16 06:10 | NUR ---
HR AND BP ARE ELEVATED TITRATED SEDATION DOWNWARD PER PROTOCOL. VERSED AT 4 AND FENT IS AT 125 SYSTOLIC BP READS IN 160, HEART RATE IN LOW 100'S, RR RANGES FROM 19 TO 26, SPO2 IS AT 95%
--- NOTE | 2020-06-16 07:39 | NUR ---
REPORT GIVEN TO DAY SHIFT RN (MIRTHA) DAY SHIFT RN AWARE THAT IVONNE (DAUGHTER) WANTS TO TALK TO DOCTOR.
--- NOTE | 2020-06-16 07:40 | NUR ---
OPENING NOTE RECEIVED REPORT FROM TELEPHONE LINEWORKER RN. PT IS INTUBATED AND SEDATED. NO S/S OF DISTRESS AT THIS TIME. VS STABLE. BED IS LOCKED AT LOWEST POSITION, SIDE RAILS ARE UP. WILL CONTINUE TO MONITOR.
[2020-06-16] MEDS: cefTRIAXone 1GM/50ML D5W 50 ML IV SCH (09:02)
[2020-06-16] MEDS: PANTOPRAZOLE 40 MG/10 ML VIAL INJ IV SCH ×2 (09:33→22:31)
[2020-06-16] MEDS: SODIUM CHLOR 0.9% PF (SALINE LOCK) 10ML VIAL/SYR IV SCH ×2 (09:33→22:31)
[2020-06-16] MEDS: ASPirin 81 mg TAB PO SCH (09:34)
[2020-06-16] MEDS: AZITHROMYCIN 500MG/ 250ML 250 ML IV SCH (09:34)
[2020-06-16] MEDS: amLODIPine BESYLATE 5 MG TAB PO SCH (09:35)
--- NOTE | 2020-06-16 10:15 | NUR ---
PAGED DR LOTT REGARDING HIGH BLOOD PRESSURE. STATED SHE WILL COME DOWN AND ASSESS PT FIRST. NO NEW ORDERS RECEIVED. WILL CONTINUE TO MONITOR.
--- NOTE | 2020-06-16 13:03 | NUR ---
DR HANNAH AT BEDSIDE ORDERS RECEIVED, WILL CARRY OUT. WILL CONTINUE TO MONITOR.
--- NOTE | 2020-06-16 13:08 | NUR ---
DAUGHTER ON THE PHONE. VERIFIED PW. DISCUSSED PT STATUS AND POC. ALL QUESTIONS AND CONCERNS ADDRESSED. WILL CONTINUE TO MONITOR.
--- NOTE | 2020-06-16 13:15 | NUR ---
DR KELLOGG AT BEDSIDE DISCUSSED PT STATUS AND POC. NEW ORDERS RECEIVED, WILL CARRY OUT. WILL CONTINUE TO MONITOR.
[2020-06-16] MEDS ORDERED: hydrALAZINE HCL 20 MG/ML VL IV PRN (14:45)
[2020-06-16] MEDS: METOPROLOL TARTRATE 1MG/1ML-5ML VIAL IV PRN (15:33)
[2020-06-16] MEDS ORDERED: MIDAZOLAM DRIP 50 mg/50mL 50 ML IV SCH (16:24)
--- NOTE | 2020-06-16 17:33 | NUR ---
DAUGHTER ON THE PHONE PW VERIFIED, DISCUSSED PT STATUS AND POC. ADDRESSED ALL QUESTIONS AND CONCERNS. WILL CONTINUE TO MONITOR.
--- NOTE | 2020-06-16 20:00 | NUR ---
OPENING NOTE RECEIVED REPORT FROM DAY SHIFT RN. PT IS INTUBATED AND SEDATED (FENT 200, VERSED 2). NO S/S OF DISTRESS AT THIS TIME. HR IS IN 100'S, BP ABOVE 150, BP AND HR INCREASES WITH TURNING. WILL GIVE BP MEDICATIONS AND TITRATED SEDATION ACCORDINGLY. MOVING UPPER AND LOWER EXTREMITIES AGAINST GRAVITY, MITTENS ARE ON FOR PROTECTION, BED RAILS ARE X3 FOR SAFETY, BED ALARM IS ON, BED IN LOWEST POSITION. FEEDING RUNNING AT 10 CC/HR, RESIDUAL 10CC, NORMOACTIVE BOWEL SOUNDS, HOB 35 DEGREES. PATIENT IS VISUALIZED FROM NURSING STATION AT ALL TIMES. WILL CONTINUE TO MONITOR AND REASSESS. SEE INTERVENTIONS FOR COMPLETE ASSESSMENT.
--- NOTE | 2020-06-16 21:05 | NUR ---
POSTPONING SEDATION UNTIL 299 CPAP TRIAL AM Addendum: 06/16/20 at 210 by ROBB RUIZ RN RN Amended: Links added. Addendum: 06/16/20 at 2138 by ROBB RUIZ RN RN POSTPONING SEDATION VACATION* UNTIL 299
--- NOTE | 2020-06-16 21:38 | NUR ---
POSTPONING SEDATION VACATION* UNTIL 0300
[2020-06-16] MEDS: ATORVASTATIN 20 MG TAB PO SCH (22:31)
--- NOTE | 2020-06-16 22:57 | NUR ---
SPOKE WITH IVONNE (DAUGHTER) PASS PROVIDED, UPDATED ON PATIENTS STATUS AND POC, ALL QUESTIONS AND CONCERNS ADDRESSED. IVONNE CONFIRMED THAT DOCTOR SPOKE WITH HER.
[2020-06-17] VITALS (96 sets, daily range): BP systolic 113–192; BP diastolic 40–157
--- NOTE | 2020-06-17 02:10 | NUR ---
FEEDING IS OFF RATE WAS 20 CC/HR RESIDUAL 4 CC
--- NOTE | 2020-06-17 02:20 | NUR ---
CARES BED BATH, BED LINEN CHANGE. SACRUM WAS CLEANED AND DRESSED PER MD ORDER. DURING CARE BP AND HR WENT UP, SPO2 REMAINED ABOVE 95%
[2020-06-17] MEDS: DexMEDEtomidine 400 MCG in D5W 5% 96 ML IV SCH ×2 (03:50→14:56)
[2020-06-17 04:12] LABS: Basophils # (auto) 0 10 ^3/uL (0-0.2); Basophils % (auto) 0.1 % (0.0-2.0); Eosinophils # (auto) 0 10 ^3/uL (0-0.8); Hematocrit 22.7 % (41.0-53.0); Hemoglobin 7.7 g/dL (13.5-17.5); Lymphocytes # (auto) 0.3 10 ^3/uL (0.4-5.4); Lymphocytes % (auto) 2.9 % (10.0-50.0); Mean Corpuscular Hemoglobin 33.3 pg (28.0-32.0); Mean Corpuscular Hgb Conc. 33.9 g/dL (32.0-36.0); Mean Corpuscular Volume 98.3 fL (80.0-100.0); Monocytes # (auto) 1.2 10 ^3/uL (0-1.3); Monocytes % (auto) 10.9 % (0.0-12.0); Neutrophils # (auto) 9.9 10 ^3/uL (1.6-8.6); Neutrophils % (auto) 86.1 % (37.0-80.0); Platelet Count (auto) 323 10^3/uL (140-450); Red Blood Cells 2.31 10^6/uL (4.5-5.90); Red Cell Distribution Width 15.2 % (11.8-14.3); White Blood Cell 11.4 10^3/uL (4.4-10.8)
[2020-06-17 04:27] LABS: Calcium 10.1 mg/dL (8.5-10.1); Potassium 3.4 mmol/L (3.5-5.1)
[2020-06-17 04:28] LABS: BUN/Creatinine Ratio 38.5
[2020-06-17] MEDS ORDERED: POTASSIUM CHL 20MEQ/100ML 100 ML IV ONE (05:45)
[2020-06-17] MEDS: fentaNYL Drip 2500mCg/250mlNS 250 ML IV SCH (06:07)
--- NOTE | 2020-06-17 07:40 | NUR ---
OPENING SHIFT NOTE REPORT RECEIVED FROM CAR WORKER RN, MORNING ASSESSMENT PERFORMED AND DOCUMENTED. 64 YEAR OLD MALE, LIGHTLY SEDATED, MECHANICALLY VENTILATED. PATIENT SLOWLY BEING WEANED OFF SEDATION FOR POSSIBLE CPAP ATTEMPT TODAY PER DR KELLOGG. PATIENT AT THIS TIME, WAILING ARMS WITH NO PURPOSEFUL MOVEMENT, NOT FOLLOWING COMMANDS. SEDATION WILL CONTINUE TO BE DECREASED TO SEE IF PATIENT IS ABLE TO WAKE UP ENOUGH TO FOLLOW COMMANDS. FALL AND SAFETY PRECAUTIONS IN PLACE, WILL CONTINUE TO MONITOR.
[2020-06-17] MEDS: ASPirin 81 mg TAB PO SCH (10:01)
[2020-06-17] MEDS: cefTRIAXone 1GM/50ML D5W 50 ML IV SCH (10:01)
[2020-06-17] MEDS: amLODIPine BESYLATE 5 MG TAB PO SCH (10:02)
[2020-06-17] MEDS: SODIUM CHLOR 0.9% PF (SALINE LOCK) 10ML VIAL/SYR IV SCH ×2 (10:03→22:00)
[2020-06-17] MEDS: PANTOPRAZOLE 40 MG/10 ML VIAL INJ IV SCH ×2 (10:03→22:00)
[2020-06-17] MEDS: METOPROLOL TARTRATE 1MG/1ML-5ML VIAL IV PRN (10:19)
--- NOTE | 2020-06-17 10:37 | NUR ---
SPOKE WITH HOSPITALIST DR KELLOGG UPDATED ON PATIENT'S STATUS, MD AWARE OF MORNING LABS AND ORDERED 250 MLS OF FREE Q6H WATER NGT. DR KELLOGG ALSO UPDATED ON PATIENT'S NEURO STATUS AND NOT AWAKE OR FOLLOWING COMMANDS AT THIS TIME. PATIENT ONLY FLAILING UPPER EXTREMITIES WITH NO PURPOSE. MD VERBALIZED UNDERSTANDING.
[2020-06-17] MEDS: AZITHROMYCIN 500MG/ 250ML 250 ML IV SCH (11:20)
--- NOTE | 2020-06-17 11:57 | NUR ---
Nutrition Followup Notes Pt wt is 84.9 kg Pt off sedation per RN note. Pt scheduled for CPAP trial today per RN note. Pt with Glucerna 1.2 ordered at 70 ml/hr with TF held d/t to residuals per RN note. Consider restarting TF when medically feasible Est Energy needs: 7371-7957 kcals (23-25 kcal/kgBW) Est Protein needs: 51-68 gms/day (0.6-0.8g/kg BW 84.9kg r/t elevated RFTs) Will continue to monitor and reassess prn. LABS: BUN 55H, Creat 1.43H, Alb 1.9L, Na 155H GI: Last BM unknown per RN doc, pt with 80 ml of gastric residuals 06/16 BS: 12 high risk. Refer to wound assessment report for full details PES: Altered nutrition related lab values r/t current/chronic medical condition aeb elev RFTs, low GFR, severe hypoalbuminemia Comments Will continue to monitor PO status, skin status, pertinent labs and weight trends. Will f/u in 2-3 days. 1) Continue to carefully monitor pt NPO status 2) If pt remains NPO for the next 48 hours, consider EN nutrition support Glucerna 1.2 @ 50ml/hr goal rate (d/t pt compromised kidney function) 3) If albumin continues trending down with improved RFts, consider Prostat 1 pkt bid 4) Gradually advance pt to oral diet when medically feasible and as tolerated 5) Continue current plan of care
--- NOTE | 2020-06-17 13:25 | NUR ---
Family updated on pt status Family of KYLAH LAWSREY updated on patient's status and condition after password verification. All questions and concerns addressed. Chasidy patient's daughter verbalized understanding and notified this nurse that patient is very sensitive to pain medication that Dittmer made him unresponsive too. MD will be notified.
[2020-06-17] MEDS: PROPOFOL 100 ML IV SCH (15:57)
--- NOTE | 2020-06-17 17:28 | NUR ---
Family updated on pt status Family of THEO LAWS updated on patient's status and condition after password verification. All questions and concerns addressed. Patient's daughter Chasidy verbalized understanding.
[2020-06-17] MEDS: FREE WATER GT SCH ×2 (18:00→23:34)
[2020-06-17] MEDS: ATORVASTATIN 20 MG TAB PO SCH (22:00)
[2020-06-18] VITALS (44 sets, daily range): BP systolic 85–189; BP diastolic 37–99
[2020-06-18] MEDS: PROPOFOL 100 ML IV SCH ×2 (00:20→08:57)
[2020-06-18] MEDS: DexMEDEtomidine 400 MCG in D5W 5% 96 ML IV SCH (02:05)
[2020-06-18 04:52] LABS: Basophils # (auto) 0 10 ^3/uL (0-0.2); Eosinophils # (auto) 0 10 ^3/uL (0-0.8); Hemoglobin 7.6 g/dL (13.5-17.5); Lymphocytes # (auto) 0.5 10 ^3/uL (0.4-5.4); Lymphocytes % (auto) 5.3 % (10.0-50.0); Mean Corpuscular Hemoglobin 33.4 pg (28.0-32.0); Mean Corpuscular Hgb Conc. 33.1 g/dL (32.0-36.0); Neutrophils # (auto) 8.1 10 ^3/uL (1.6-8.6)
[2020-06-18 04:55] LABS: Hematocrit 22.9 % (41.0-53.0); Mean Corpuscular Volume 101.1 fL (80.0-100.0); Monocytes % (auto) 10.7 % (0.0-12.0); Nucleated Red Blood Cells % 0.1 %; Platelet Count (auto) 284 10^3/uL (140-450); Red Blood Cells 2.27 10^6/uL (4.5-5.90); Red Cell Distribution Width 15.5 % (11.8-14.3); White Blood Cell 9.7 10^3/uL (4.4-10.8)
[2020-06-18 05:11] LABS: BUN/Creatinine Ratio 37.7; Calcium 10.3 mg/dL (8.5-10.1); Potassium 3.2 mmol/L (3.5-5.1)
[2020-06-18] MEDS: FREE WATER GT SCH ×3 (06:09→18:00)
[2020-06-18] MEDS ORDERED: IOHEXOL 300 MG/ML 100ML BOTTLE IJ ONE (09:07)
[2020-06-18] MEDS ORDERED: D5W 5% 1,000 ML IV SCH (09:15)
[2020-06-18] MEDS: cefTRIAXone 1GM/50ML D5W 50 ML IV SCH (09:25)
[2020-06-18] MEDS: SODIUM CHLOR 0.9% PF (SALINE LOCK) 10ML VIAL/SYR IV SCH ×2 (10:00→22:00)
[2020-06-18] MEDS: ENOXAPARIN SOD 80 MG/0.8ML SYRINGE SC SCH ×2 (10:00→22:00)
[2020-06-18] MEDS: AZITHROMYCIN 500MG/ 250ML 250 ML IV SCH (10:00)
[2020-06-18] MEDS: PANTOPRAZOLE 40 MG/10 ML VIAL INJ IV SCH ×2 (10:00→22:00)
[2020-06-18] MEDS: POTASSIUM CHLORIDE 20 MEQ in D5W 5% 1,000 ML IV SCH ×2 (10:00→20:06)
[2020-06-18] MEDS: amLODIPine BESYLATE 5 MG TAB PO SCH (10:00)
--- NOTE | 2020-06-18 12:10 | NUR ---
Respiratory note: PT TRANSPORTED TO CT FROM ICU VIA TRANSPORT VENT WITHOUT INCIDENT. PT RETURNED TO ICU ROOM [address] WITHOUT INCIDENT @ 12:26. RN, AND TECH AT BEDSIDE. PT PLACED BACK ON VENT, ON PREVIOUS SETTINGS. WILL CONTINUE TO MONITOR PT.
[2020-06-18] MEDS ORDERED: IOHEXOL 350 MG/ML 100ML IJ ONE (12:12)
[2020-06-18] MEDS ORDERED: METOPROLOL TARTRATE 25 MG TAB GT ONE (12:15)
[2020-06-18] MEDS: ATORVASTATIN 20 MG TAB PO SCH (22:00)
[2020-06-18] MEDS: METOPROLOL TARTRATE 25 MG TAB GT SCH (22:00)
[2020-06-18] MEDS: fentaNYL Drip 2500mCg/250mlNS 250 ML IV SCH (22:39)
[2020-06-19] VITALS (93 sets, daily range): BP systolic 87–173; BP diastolic 33–97
[2020-06-19 04:53] LABS: Basophils # (auto) 0 10 ^3/uL (0-0.2); Basophils % (auto) 0.1 % (0.0-2.0); Eosinophils # (auto) 0 10 ^3/uL (0-0.8); Hemoglobin 7.2 g/dL (13.5-17.5); Lymphocytes # (auto) 0.5 10 ^3/uL (0.4-5.4); Lymphocytes % (auto) 5.3 % (10.0-50.0)
[2020-06-19 04:54] LABS: Eosinophils % (auto) 0.1 % (0.0-7.0); Hematocrit 21.3 % (41.0-53.0); Mean Corpuscular Hemoglobin 33.7 pg (28.0-32.0); Mean Corpuscular Hgb Conc. 33.6 g/dL (32.0-36.0); Mean Corpuscular Volume 100.3 fL (80.0-100.0); Monocytes # (auto) 0.8 10 ^3/uL (0-1.3); Monocytes % (auto) 9.1 % (0.0-12.0); Neutrophils # (auto) 7.5 10 ^3/uL (1.6-8.6); Neutrophils % (auto) 85.4 % (37.0-80.0); Platelet Count (auto) 248 10^3/uL (140-450); Red Blood Cells 2.13 10^6/uL (4.5-5.90); Red Cell Distribution Width 15.4 % (11.8-14.3); White Blood Cell 8.8 10^3/uL (4.4-10.8)
[2020-06-19] MEDS: FREE WATER GT SCH ×4 (06:00→17:22)
[2020-06-19 07:26] LABS: Albumin 1.5 g/dL (3.4-5.0); BUN/Creatinine Ratio 33.3; Calcium 9.9 mg/dL (8.5-10.1); Potassium 3.1 mmol/L (3.5-5.1)
[2020-06-19 07:28] LABS: Bilirubin, Total 0.4 mg/dL (0.2-1.0)
--- NOTE | 2020-06-19 07:30 | NUR ---
PROPOFOL TURNED OFF. WILL CONTINUE TO MONITOR IF PATIENT TOLERATED CPAP
[2020-06-19] MEDS: DexMEDEtomidine 400 MCG in D5W 5% 96 ML IV SCH (08:09)
--- NOTE | 2020-06-19 08:30 | NUR ---
PROPOFOL TURNED BACK ON, PATIENTS RESPIRATIONS 44-50, BUCKING THE VENTILATOR, BLOOD PRESSURE INCREASING AND WAS 150-160 SYSTOLIC. CALL OUT TO LLOYD GONZALEZ AWAITING CALL BACK.
[2020-06-19] MEDS: cefTRIAXone 1GM/50ML D5W 50 ML IV SCH (08:46)
--- NOTE | 2020-06-19 09:22 | NUR ---
DR. JUAREZ HERE TO SEE PATIENT. SEE ME EMR AND MD NOTES.
--- NOTE | 2020-06-19 09:37 | NUR ---
SPOKE WITH IVONNE (DAUGHTER) PASSWORD PROVIDED, UPDATED ON PATIENTS STATUS AND POC, ALL QUESTIONS AND CONCERNS ADDRESSED.
[2020-06-19] MEDS: amLODIPine BESYLATE 5 MG TAB PO SCH (10:00)
[2020-06-19] MEDS: PANTOPRAZOLE 40 MG/10 ML VIAL INJ IV SCH ×2 (10:00→21:19)
[2020-06-19] MEDS: SODIUM CHLOR 0.9% PF (SALINE LOCK) 10ML VIAL/SYR IV SCH ×2 (10:00→22:00)
[2020-06-19] MEDS: METOPROLOL TARTRATE 25 MG TAB GT SCH ×2 (10:00→21:20)
[2020-06-19] MEDS: AZITHROMYCIN 500MG/ 250ML 250 ML IV SCH (10:00)
--- NOTE | 2020-06-19 10:00 | NUR ---
DR. ADAMS HERE TO SEE PATIENT. SEE ME EMR AND MD NOTES.
--- NOTE | 2020-06-19 10:50 | NUR ---
DR. BARTHOLOMEW HERE TO SEE PATIENT. SEE ME EMR AND MD NOTES.
[2020-06-19] MEDS: POTASSIUM CHLORIDE 40 MEQ in D5W 5% 1,000 ML IV SCH ×2 (11:00→21:19)
--- NOTE | 2020-06-19 13:20 | NUR ---
Respiratory note: BITE BLOCK PLACED ON PT. PT IS OFF SEDATION AND IS BITING DOWN ON ETT. RN NOTIFIED.
--- NOTE | 2020-06-19 13:30 | NUR ---
SPOKE WITH IVONNE (DAUGHTER) PASSWORD PROVIDED, UPDATED ON PATIENTS STATUS AND POC, ALL QUESTIONS AND CONCERNS ADDRESSED.
[2020-06-19] MEDS: PROPOFOL 100 ML IV SCH (13:45)
--- NOTE | 2020-06-19 13:50 | NUR ---
Respiratory note: PT PLACED ON CPAP TRIAL. RN AWARE. NO SOB OR DISTRESS NOTED. PT IS AWAKE AND ALERT. WEANING PARAMETERS AND ABG TO BE OBTAINED
--- NOTE | 2020-06-19 13:50 | NUR ---
CPAP TRIAL STARTED.
--- NOTE | 2020-06-19 14:03 | NUR ---
Nutrition Followup Notes Wt: 83.5 kg Pt`s intubated off sedation per RN for CPAP later today. pt continues to be NPO Est Energy needs: 2667-2193 kcals (23-25 kcal/kgBW), Est Protein needs: 51-68 gms/day (0.6-0.8g/kg BW 84.9kg r/t elevated RFTs) Will continue to monitor and reassess prn. LABS: BUN 49 H, CREAT 1.47 H GLU 122 H ALB 1.5 L GI: Last BM unknown per RN doc, pt with 80 ml of gastric residuals 06/16 BS: 12 high risk. Refer to wound assessment report for full details PES: Altered nutrition related lab values r/t current/chronic medical condition aeb elev RFTs, low GFR, severe hypoalbuminemia Comments Will continue to monitor npo status, skin status, pertinent labs and weight trends. Will f/u in 2-3 days. 1) Consider EN nutrition support Glucerna 1.2 @ 50ml/hr goal rate 3) If albumin continues trending down with improved RFts, consider Prostat 1 pkt bid 4) Gradually advance pt to oral diet when medically feasible and as tolerated 5) Continue current plan of care
[2020-06-19] MEDS ORDERED: PIPERACILLIN-TAZO 4.5GM 100 ML IV ONE (14:45)
[2020-06-19] MEDS ORDERED: DOXYCYCLINE 100 MG TAB/CAP PO ONE (14:45)
[2020-06-19] MEDS ORDERED: MULTIPLE VITAMINS W/ MINERALS TAB PO ONE (14:45)
--- NOTE | 2020-06-19 14:48 | NUR ---
Respiratory note: CALLED WITH PT'S WEANING PARAMETERS AND ABG RESULTS FOR CPAP TRIAL. WEANING PARAMETERS NIF -47.2, VC 1350, RSBI 76, LEAK 350. ORDERS TO EXTUBATE PT GIVEN BY . PT EXTUBATED AND PLACED ON 8L 40% COOL MIST. NO STRIDOR NOTED. BREATH SOUNDS ARE COARSE, PT HAS STRONG PRODUCTIVE COUGH. HR 111, RR 20, POX 95%. NO DISTRESS NOTED. WILL CONTINUE TO MONITOR PT.
--- NOTE | 2020-06-19 14:48 | NUR ---
PATIENT EXTUBATED BY RT. CALL OUT TO DR. ADAMS FOR PRN PAIN MEDICATION.
[2020-06-19] MEDS: traMADol HCL 50 MG TAB PO PRN ×2 (15:10→21:20)
[2020-06-19] MEDS: PIPERACILLIN-TAZO 4.5GM 100 ML IV SCH ×2 (15:25→22:43)
[2020-06-19 19:14] LABS: % Iron Saturation 36.8 % (20-55)
--- NOTE | 2020-06-19 19:50 | NUR ---
PT FOUND SOILED IN LARGE LOOSE BM. CLEANED PT APPROPRIATELY. PARTIAL ARCENIO CHANGE DONE.
--- NOTE | 2020-06-19 20:37 | NUR ---
FAMILY CALL SPOKE WITH PTS DAUGHTER IVONNE- UPDATED HER ON PT CONDITION AND PLAN OF CARE. ALL QUESTIONS AND CONCERNS ADDRESSED. TRANSFERRED HER TO PORTABLE PHONE TO SPEAK WITH PT.
[2020-06-19] MEDS: DOXYCYCLINE 100 MG TAB/CAP PO SCH (21:20)
[2020-06-19] MEDS: LORazepam 0.5 MG TAB PO PRN (21:20)
[2020-06-19] MEDS: ATORVASTATIN 20 MG TAB PO SCH (21:20)
--- NOTE | 2020-06-19 21:30 | NUR ---
PT HAD LARGE LOOSE BM. CLEANED APPROPRIATELY. FULL ARCENIO CHANGE DONE. PT TOLERATED TURNING WELL WITH NO DISTRESS.
--- NOTE | 2020-06-19 21:38 | NUR ---
WHEN ASSESSING/CLEANING PT, THIS RN TOOK PHOTOS OF PTS SACRAL AREA BUT IT HAS ALREADY BEEN PHOTOGRAPHED AND DOCUMENTED.
--- NOTE | 2020-06-19 21:42 | NUR ---
PT REFUSING ORAL CARE
[2020-06-20] VITALS (74 sets, daily range): BP systolic 90–143; BP diastolic 34–81
[2020-06-20] MEDS: traMADol HCL 50 MG TAB PO PRN (04:38)
[2020-06-20] MEDS: LORazepam 0.5 MG TAB PO PRN (04:38)
--- NOTE | 2020-06-20 04:39 | NUR ---
PT REFUSING ORAL CARE AND ATTEMPTING TO HIT THIS RN.
--- NOTE | 2020-06-20 04:49 | NUR ---
20G IV TO BILATERAL FOREARM DISCONTINUED. CATHETERS IN TACT AND PRESSURE DRESSING APPLIED.
[2020-06-20 05:29] LABS: Hematocrit 21.9 % (41.0-53.0); Hemoglobin 7.5 g/dL (13.5-17.5); Mean Corpuscular Hemoglobin 33.6 pg (28.0-32.0); Mean Corpuscular Hgb Conc. 34.3 g/dL (32.0-36.0); Mean Corpuscular Volume 97.8 fL (80.0-100.0); Platelet Count (auto) 261 10^3/uL (140-450); Red Blood Cells 2.24 10^6/uL (4.5-5.90); Red Cell Distribution Width 14.4 % (11.8-14.3); White Blood Cell 10.1 10^3/uL (4.4-10.8)
[2020-06-20 05:47] LABS: Calcium 9.5 mg/dL (8.5-10.1); Potassium 5.2 mmol/L (3.5-5.1)
[2020-06-20 05:50] LABS: BUN/Creatinine Ratio 20.1
[2020-06-20] MEDS: FREE WATER GT SCH ×4 (05:58→15:55)
[2020-06-20 06:08] LABS: Basophils # (auto) 0 10 ^3/uL (0-0.2); Eosinophils # (auto) 0 10 ^3/uL (0-0.8); Eosinophils % (auto) 0.3 % (0.0-7.0); Lymphocytes # (auto) 0.2 10 ^3/uL (0.4-5.4); Lymphocytes % (auto) 2.3 % (10.0-50.0); Monocytes % (auto) 9.4 % (0.0-12.0); Nucleated Red Blood Cells % 0.2 %
--- NOTE | 2020-06-20 06:31 | NUR ---
PT SOILED IN BM. REFUSED CLEANING FROM THIS RN AND ATTEMPTED TO HIT THIS RN. WILL TRY AGAIN.
[2020-06-20] MEDS: PIPERACILLIN-TAZO 4.5GM 100 ML IV SCH ×3 (06:47→22:16)
[2020-06-20] MEDS: POTASSIUM CHLORIDE 40 MEQ in D5W 5% 1,000 ML IV SCH (07:24)
--- NOTE | 2020-06-20 07:50 | NUR ---
OPENING Report received from Kamini KENNY RN. Care initiated and initial assessment complete.
[2020-06-20] MEDS: fentaNYL Drip 2500mCg/250mlNS 250 ML IV SCH (08:00)
--- NOTE | 2020-06-20 08:00 | NUR ---
REFUSING ORAL CARE Attempted to clean patients mouth, visibly dirty, patient is refusing.
--- NOTE | 2020-06-20 08:50 | NUR ---
PARTIAL LINEN CHANGE Patient had a small BM, brown, sticky in texture, and soft. Tolerated turn well.
--- NOTE | 2020-06-20 09:00 | NUR ---
SPOKE TO MD Dr. Marr called to have us shut off fluids containing potassium, informed MD they were off prior to shift once elevated potassium lab came back.
[2020-06-20] MEDS ORDERED: FUROSEMIDE 40 MG/4 ML VIAL IV ONE (09:15)
[2020-06-20] MEDS: PANTOPRAZOLE 40 MG/10 ML VIAL INJ IV SCH (09:39)
[2020-06-20] MEDS: ENOXAPARIN SOD 40 MG/0.4 ML SYRINGE SC SCH (09:39)
[2020-06-20] MEDS: MULTIPLE VITAMINS W/ MINERALS TAB PO SCH (09:39)
[2020-06-20] MEDS: DOXYCYCLINE 100 MG TAB/CAP PO SCH ×2 (09:40→22:16)
[2020-06-20] MEDS: METOPROLOL TARTRATE 25 MG TAB GT SCH ×2 (09:40→22:15)
[2020-06-20] MEDS: amLODIPine BESYLATE 5 MG TAB PO SCH (09:40)
[2020-06-20] MEDS: SODIUM CHLOR 0.9% PF (SALINE LOCK) 10ML VIAL/SYR IV SCH ×2 (09:40→22:15)
--- NOTE | 2020-06-20 10:00 | NUR ---
REFUSING ORAL CARE
--- NOTE | 2020-06-20 10:45 | NUR ---
BEDSIDE Dr. Marr bedside. Monitor patients labs closely, particularly potassium.
[2020-06-20] MEDS: DexMEDEtomidine 400 MCG in D5W 5% 96 ML IV SCH (12:00)
--- NOTE | 2020-06-20 12:00 | NUR ---
PATIENT REFUSING ORAL CARE
--- NOTE | 2020-06-20 12:10 | NUR ---
WOUND CARE NOTE: IN TO SEE PATIENT AT THIS TIME FOR WOUND RE-EVALUATION. PATIENT HAS BEEN EXTUBATED, IS NOW AWAKE, ALERT. HE CONTINUES TO BE MAX ASSIST FOR HIS ADL'S, INCLUDING TURNING/REPOSITIONING. CURRENT RADHA SCORE IS 12. HE CONTINUES TO REST ON ICU LOW AIRLOSS BED. PATIENT'S MOTTLING OF BILATERAL FEET/HEELS HAS RESOLVED. FEET/HEELS ARE NOW PINK, BLANCHABLE, WARM TO THE TOUCH. HIS DTI TO THE RIGHT ANKLE APPEARS NON BLANCHABLE REDNESS, WITH DARK RED, NON BLANCHING SKIN NOTED THAT IS INTACT. LEFT OPEN TO AIR. SACRAL DTI IS MUCH IMPROVED. WOUND EVOLVED OPEN TO STAGE 2 PRESSURE INJURY- OPEN IIN TWO AREAS WITHIN 5 X 5 CM DTI. ECCHYMOSIS HAS RESOLVED, WITH DARK PRETTY SKIN NOTED. APPLIED ZGUARD, COVERING WITH AN OPTIFOAM GENTLE SACRAL DRESSING. PATIENT REPOSITIONED ONTO RIGHT SIDE, REDISTRIBUTING PRESSURE POINTS WITH PILLOWS. RECOMMEND: CONTINUE WITH SIDE TO SIDE ONLY POSITIONING, CONTINUE WITH ALL OTHER WOUND CARE ORDERS PREVIOUSLY PRESCRIBED BY MD, CONTINUE WITH SKIN/WOUND CARE PLAN. WOUND CARE TEAM WILL CONTINUE TO MONITOR. Addendum: 06/20/20 at 1542 by Prachi Falcon RN Amended: Links added.
[2020-06-20] MEDS: PROPOFOL 100 ML IV SCH (13:45)
--- NOTE | 2020-06-20 14:00 | NUR ---
REFUSING ORAL CARE
--- NOTE | 2020-06-20 16:00 | NUR ---
REFUSING ORAL CARE
--- NOTE | 2020-06-20 16:13 | NUR ---
SPEECH THERAPIST BEDSIDE Swallow eval being completed.
--- NOTE | 2020-06-20 16:14 | NUR ---
DIET Pureed and thin liquids okay per speech therapy.
--- NOTE | 2020-06-20 16:56 | NUR ---
SWALLOW EVALUATED. PATIENT HAS OWN NATURAL TEETH WITH VERY POOR HYGIENE. ABLE TO FOLLOW ONE STEP DIRECTIONS. PATIENT ABLE TO TOLERATE PUREE DIET TEXTURE WITH THIN LIQUIDS WITH NO OVERT SIGNS OR SYMPTOMS OF ASPIRATION. NURSING NOTIFIED.
[2020-06-20] MEDS ORDERED: SODIUM FERR GLUC 62.5MG/5ML 125 MG in SODIUM CHL 0.9% 100 ML IV ONE (17:45)
--- NOTE | 2020-06-20 20:00 | NUR ---
OPEN ASSUMED CARE OF MALE PT AWAKE AND ALERT. PT ABLE TO FOLLOW COMMANDS. PT WITH DELAYED SPEECH. ABLE TO FOLLOW SIMPLE COMMANDS ABLE TO RESPOND APPROPRIATELY TO SIMPLE QUESTIONS. O2 VIA N/C 2L. PT SATS 89% INCREASED O2 TO 3L N/C. SINUS TACH ON HANDTOOLS REPAIRER. R.UA PICC LINE IN PLACE ALL PORTS PATENT. DRESSING CDI. VILLAFANA TO GRAVITY DRAINING YELLOW URINE WITH SEDIMENT. WILLIAM SCD'S IN PLACE. PT WITH OPTIFOAM GENTLE SACRAL DRESSING IN PLACE OVER PRESSURE AREA/SUPERFICIAL SKIN BREAK. Z-GAURD BARRIER OINTMENT IN PLACE. PT DENIES PAIN. HOB ELEVATED 30 DEGREES. PT IN FULL VIEW OF RN STATION. WILL CONTINUE TO MONITOR.
[2020-06-20] MEDS ORDERED: DOCUSATE ORAL LIQUID 100 MG/10 ML UD GT PRN (20:30)
--- NOTE | 2020-06-20 20:45 | NUR ---
family call PT'S DAUGHTER IVONNE CALLED UNIT FOR UPDATE ON PT CONDITION. AFTER PASSWORD FOR PHONE GIVEN. UPDATE PROVIDED. ALL QUESTIONS AND CONCERNS ADDRESSED.
--- NOTE | 2020-06-20 22:10 | NUR ---
PO MEDS PT HOB ELEVATED TO 45 DEGREES. PT ABLE TO TAKE PO MEDS CRUSHED IN APPLE SAUCE. PT NEEDS FREQUENT QUEUING TO SWALLOW. SML SIPS OF WATER PROVIDED. NO INDICATION OF ASPIRATION OBSERVED. WILL CONTINUE TO CLOSELY MONITOR.
[2020-06-20] MEDS: ATORVASTATIN 20 MG TAB PO SCH (22:15)
[2020-06-21] VITALS (19 sets, daily range): BP systolic 109–139; BP diastolic 56–91
[2020-06-21] MEDS: PANTOPRAZOLE 40 MG/10 ML VIAL INJ IV SCH ×3 (00:20→21:41)
--- NOTE | 2020-06-21 03:15 | NUR ---
GI PT HAD MOD SIZED LOOSE DARK BROWN BM. PT CLEANSED. NEW OPTIFOAM GENTLE SACRAL DRESSING PLACED OVER Z GUARD BARRIER OINTMENT TO SACRAL PRESSURE ULCER.
--- NOTE | 2020-06-21 03:30 | NUR ---
Patient bathe/linen change Patient given complete bath. Skin integrity assessed for any changes. Linens changed. Patient repositioned for comfort.
[2020-06-21 05:25] LABS: White Blood Cell 7.6 10^3/uL (4.4-10.8)
[2020-06-21 05:27] LABS: Hematocrit 21.5 % (41.0-53.0); Hemoglobin 7.4 g/dL (13.5-17.5); Mean Corpuscular Hemoglobin 33.6 pg (28.0-32.0); Mean Corpuscular Hgb Conc. 34.3 g/dL (32.0-36.0); Platelet Count (auto) 189 10^3/uL (140-450); Red Blood Cells 2.19 10^6/uL (4.5-5.90); Red Cell Distribution Width 14.9 % (11.8-14.3)
[2020-06-21 05:38] LABS: Basophils % (manual) 0 (0.0-2.0); Blast Cells 0; Eosinophils % (manual) 0 (0-7); Metamyelocytes % 0; Myelocytes % 0; Promyelocytes % 0; Reactive Lymphocytes 0
[2020-06-21 05:40] LABS: Potassium 3.1 mmol/L (3.5-5.1)
[2020-06-21 05:47] LABS: Albumin 1.7 g/dL (3.4-5.0); BUN/Creatinine Ratio 22.7; Bilirubin, Total 0.7 mg/dL (0.2-1.0); Total Protein 8.5 g/dL (6.4-8.2)
[2020-06-21 05:57] LABS: INR 1.19 (0.9-1.15); Partial Thromboplastin Time 38.1 sec (23.0-31.2)
[2020-06-21] MEDS: FREE WATER GT SCH ×2 (06:00)
[2020-06-21 06:03] LABS: Band Neutrophils % (manual) 4; Lymphocytes % (manual) 8 (10.0-50.0); Monocytes % (manual) 14 (0-12)
[2020-06-21] MEDS: PIPERACILLIN-TAZO 4.5GM 100 ML IV SCH ×3 (06:39→23:03)
--- NOTE | 2020-06-21 08:48 | NUR ---
CALL PLACED TO DR BARTHOLOMEW RE: K+ 3.1
[2020-06-21] MEDS ORDERED: POTASSIUM CHL 20 Meq TABLET PO ONE (09:00)
--- NOTE | 2020-06-21 09:15 | NUR ---
PATIENT'S DAUGHTER PHONES - GIVEN UPDATE ON PATIENT CONDITION VERBALIZED UNDERSTANDING.
[2020-06-21] MEDS: amLODIPine BESYLATE 5 MG TAB PO SCH (10:05)
[2020-06-21] MEDS: ENOXAPARIN SOD 40 MG/0.4 ML SYRINGE SC SCH (10:05)
[2020-06-21] MEDS: DOXYCYCLINE 100 MG TAB/CAP PO SCH ×2 (10:06→21:42)
[2020-06-21] MEDS: MULTIPLE VITAMINS W/ MINERALS TAB PO SCH (10:06)
[2020-06-21] MEDS: SODIUM CHLOR 0.9% PF (SALINE LOCK) 10ML VIAL/SYR IV SCH ×2 (10:06→21:41)
[2020-06-21] MEDS: METOPROLOL TARTRATE 25 MG TAB GT SCH ×2 (10:06→21:41)
--- NOTE | 2020-06-21 10:15 | NUR ---
PATIENT'S DAUGHTER PHONES - PRINCIPAL CONSULTING ENGINEER USED PORTABLE PHONE SO PATIENT COULD SPEAK WITH HIS DAUGHTER.
[2020-06-21] MEDS: D5W 5% 1,000 ML IV SCH ×2 (10:48→18:14)
--- NOTE | 2020-06-21 11:45 | NUR ---
DR ADAMS VISITS AND EXAMINES PATIENT - ORDERS RECEIVED.
--- NOTE | 2020-06-21 12:15 | NUR ---
Nutrition Followup Notes Wt: 78.1kg Pt is s/p swallow eval by Speech Therapist. Pt diet advanced to pureed per ST recommendation. Pt with inadequate oral intake aeb pt with 10% po intake x 2 per Rn note. Pt last received TF of Glucerna 1.2 on 06/19 per Rn note, pt received 500ml. Consider adding Glucerna 1 carton TID if pt po intake continues to be poor. Est Energy needs: 1795-3898 kcals (23-25 kcal/kgBW), Est Protein needs: 51-68 gms/day (0.6-0.8g/kg BW 84.9kg r/t elevated RFTs) Will continue to monitor and reassess prn. LABS: Na 149H, BUN 48H, Creat 2.11H, Alb 1.7L, Ca 11.0H GI: Last BM today per RN note BS: 12 high risk. Refer to wound assessment report for full details PES: Altered nutrition related lab values r/t current/chronic medical condition aeb elev RFTs, low GFR, severe hypoalbuminemia Comments Will continue to monitor po intake, skin status, pertinent labs and weight trends. Will f/u in 3-5 days. 1) Consider adding Glucerna 1 carton TID 3) If albumin continues trending down with improved RFts, consider Prostat 1 pkt bid 4) Gradually advance pt to oral diet when medically feasible and as tolerated 5) Continue current plan of care
--- NOTE | 2020-06-21 13:27 | NUR ---
HD RB AT BEDSIDE - ATTEMPTED TO DIALYZE PATIENT BUT UNABLE TO DUE TO PATIENT RESTLESSNESS AND HD CATHETER DYSFUNCTION - SEDATION INCREASED - SEE IV SPREAD SHEET. DR ALBERTO RUST X 2. SAO2 88-89% - RT PAGED X 2. Addendum: 06/21/20 at 1346 by Nadia Mora RN ERROR - GASTON RN Addendum: 06/21/20 at 1350 by Nadia Mora RN ERROR - WRONG CHART
--- NOTE | 2020-06-21 13:30 | NUR ---
HD TREATMENT STOPPED DUE TO HD CATHETER NOT WORKING - PAGEConor RUST AGAIN. Addendum: 06/21/20 at 1349 by Nadia Mora RN ERROR - WRONG CHART
[2020-06-21] MEDS: SODIUM FERR GLUC 62.5MG/5ML 125 MG in SODIUM CHL 0.9% 100 ML IV SCH (14:08)
--- NOTE | 2020-06-21 16:18 | NUR ---
REPORT CALLED TO ERLINDA LORENZ
--- NOTE | 2020-06-21 16:45 | NUR ---
PATIENT TRANSPORTED TO ROOM 277B PER BED ON TELE MONITOR AND PORTABLE O2@3L PER NC. CONDITION APPEARS STABLE FOR TRANSFER.
--- NOTE | 2020-06-21 19:15 | NUR ---
assumed care, pt. awake, oriented x2, sitter at bedside, no c/o pain, not in distress.
[2020-06-21] MEDS: ATORVASTATIN 20 MG TAB PO SCH (21:42)
[2020-06-22 05:00] VITALS: BP 120/76
[2020-06-22] MEDS: D5W 5% 1,000 ML IV SCH ×2 (05:00→15:14)
[2020-06-22] MEDS: PIPERACILLIN-TAZOB 3.375GM 100 ML IV SCH ×4 (06:00→23:44)
[2020-06-22] MEDS: PIPERACILLIN-TAZO 4.5GM 100 ML IV SCH ×2 (06:04→15:14)
[2020-06-22 07:17] LABS: Basophils # (auto) 0 10 ^3/uL (0-0.2); Basophils % (auto) 0.2 % (0.0-2.0); Calcium 9.9 mg/dL (8.5-10.1); Eosinophils # (auto) 0 10 ^3/uL (0-0.8); Eosinophils % (auto) 0.3 % (0.0-7.0); Hematocrit 24.7 % (41.0-53.0); Hemoglobin 8.5 g/dL (13.5-17.5); Lymphocytes # (auto) 0.7 10 ^3/uL (0.4-5.4); Lymphocytes % (auto) 7.8 % (10.0-50.0); Mean Corpuscular Hemoglobin 33.3 pg (28.0-32.0); Mean Corpuscular Hgb Conc. 34.2 g/dL (32.0-36.0); Mean Corpuscular Volume 97.4 fL (80.0-100.0); Monocytes # (auto) 0.8 10 ^3/uL (0-1.3); Monocytes % (auto) 8.7 % (0.0-12.0); Neutrophils # (auto) 7.1 10 ^3/uL (1.6-8.6); Platelet Count (auto) 197 10^3/uL (140-450); Red Blood Cells 2.54 10^6/uL (4.5-5.90); Red Cell Distribution Width 14.8 % (11.8-14.3); White Blood Cell 8.6 10^3/uL (4.4-10.8)
[2020-06-22 07:20] LABS: BUN/Creatinine Ratio 21.9
[2020-06-22 07:22] LABS: Potassium 2.9 mmol/L (3.5-5.1)
--- NOTE | 2020-06-22 07:30 | NUR ---
Opening Shift Note Assumed care of patient, alert to self only. No S/S of distress/SOB or pain. comfort station attendant at bedside. Bed is low, locked with 2x side rails up. Call light is within reach. Instructed on POC and to call for assist PRN, will continue to monitor for changes Q1hr and PRN.
--- NOTE | 2020-06-22 08:11 | NUR ---
Potassium 2.9 Spoke to [facility]ion administrator hospitalist, Dr. Naylor. Informed her of patient's potassium of 2.9. Received new orders (see orders)
[2020-06-22] MEDS ORDERED: POTASSIUM EFFERVESENT TAB 25 MEQ PO ONE ×2 (08:15→11:30)
[2020-06-22] MEDS: METOPROLOL TARTRATE 25 MG TAB GT SCH ×2 (08:50→21:14)
[2020-06-22] MEDS: PANTOPRAZOLE 40 MG/10 ML VIAL INJ IV SCH ×2 (08:50→21:15)
[2020-06-22] MEDS: MULTIPLE VITAMINS W/ MINERALS TAB PO SCH (08:54)
[2020-06-22] MEDS: SODIUM CHLOR 0.9% PF (SALINE LOCK) 10ML VIAL/SYR IV SCH ×2 (08:54→21:15)
[2020-06-22] MEDS: amLODIPine BESYLATE 5 MG TAB PO SCH (08:55)
[2020-06-22] MEDS: DOXYCYCLINE 100 MG TAB/CAP PO SCH ×2 (08:56→21:15)
[2020-06-22] MEDS: ENOXAPARIN SOD 40 MG/0.4 ML SYRINGE SC SCH (08:57)
[2020-06-22 09:00] VITALS: BP 135/55
[2020-06-22] MEDS ORDERED: POTASSIUM CHL 20 Meq TABLET PO ONE (09:45)
[2020-06-22] MEDS: SODIUM FERR GLUC 62.5MG/5ML 125 MG in SODIUM CHL 0.9% 100 ML IV SCH (12:02)
[2020-06-22 17:00] VITALS: BP 129/62
--- NOTE | 2020-06-22 19:10 | NUR ---
ASSUMED CARE, PT. AWAKE, CONFUSED, ORIENTED TO HIS NAME, SITTER AT BEDSIDE, NOT IN DISTRESS.
[2020-06-22] MEDS: ATORVASTATIN 20 MG TAB PO SCH (21:15)
[2020-06-22 22:00] VITALS: BP 132/68
[2020-06-23] MEDS: D5W 5% 1,000 ML IV SCH ×3 (01:00→20:32)
[2020-06-23 05:00] VITALS: BP 135/68
[2020-06-23] MEDS: PIPERACILLIN-TAZOB 3.375GM 100 ML IV SCH ×4 (06:02→23:39)
[2020-06-23 07:33] LABS: BUN/Creatinine Ratio 19.1; Calcium 9.5 mg/dL (8.5-10.1)
[2020-06-23 09:04] VITALS: BP 124/65
[2020-06-23] MEDS: ENOXAPARIN SOD 40 MG/0.4 ML SYRINGE SC SCH (10:59)
[2020-06-23] MEDS: PANTOPRAZOLE 40 MG/10 ML VIAL INJ IV SCH ×2 (10:59→22:36)
[2020-06-23] MEDS: SODIUM CHLOR 0.9% PF (SALINE LOCK) 10ML VIAL/SYR IV SCH ×2 (10:59→22:36)
[2020-06-23] MEDS: METOPROLOL TARTRATE 25 MG TAB GT SCH ×2 (10:59→22:23)
[2020-06-23] MEDS: MULTIPLE VITAMINS W/ MINERALS TAB PO SCH (10:59)
[2020-06-23] MEDS: DOXYCYCLINE 100 MG TAB/CAP PO SCH ×2 (11:00→22:23)
[2020-06-23] MEDS: amLODIPine BESYLATE 5 MG TAB PO SCH (11:00)
[2020-06-23 13:00] VITALS: BP 119/53
[2020-06-23] MEDS: SODIUM FERR GLUC 62.5MG/5ML 125 MG in SODIUM CHL 0.9% 100 ML IV SCH (13:53)
--- NOTE | 2020-06-23 15:23 | NUR ---
Nutrition Followup Notes Wt: 80.0 kg Pt is being ruled out for COVID. Pt is with a pureed diet with inadequate oral intake aeb <10% PO intake over 3 days per RN note. Consider adding Glucerna 1 carton TID if pt PO intake continues to be poor. Est Energy needs: 9817-3892 kcals (23-25 kcal/kgBW), Est Protein needs: 51-68 gms/day (0.6-0.8g/kg BW 84.9kg r/t elevated RFTs) Will continue to monitor and reassess prn. LABS: BUN 48H, Creat 2.51H, Alb 1.7L, AST 210 H, ALT 132 H, Alk Phos 213 H GI: Pt with 1 BM today per RN note BS: 14 high risk. Refer to wound assessment report for full details PES: Altered nutrition related lab values r/t current/chronic medical condition aeb elev RFTs, low GFR, severe hypoalbuminemia Comments Will continue to monitor po intake, skin status, pertinent labs and weight trends. Will f/u in 3-5 days. 1) Consider adding Glucerna 1 carton TID 3) If albumin continues trending down with improved RFts, consider Prostat 1 pkt bid 4) Gradually advance pt to oral diet when medically feasible and as tolerated 5) Continue current plan of care
[2020-06-23] MEDS ORDERED: POTASSIUM CHLORIDE 40 MEQ, LIDOCAINE 1% (LOCAL ANESTH.) 4 ML in SODIUM CHL 0.9% 100 ML IV ONE (15:30)
--- NOTE | 2020-06-23 16:20 | NUR ---
Called pharmacy to send potassium via bullet.
[2020-06-23 17:16] VITALS: BP 122/61
--- NOTE | 2020-06-23 19:40 | NUR ---
Opening Shift Note Assumed care of patient, awake and alert. No S/S of distress/SOB noted. Instructed on POC and to call for assist PRN. Bed is in lowest locked position with bed rails up x2 and call light is within reach of the patient. Sitter at the bedside for safety. To turn [id number].
[2020-06-23 22:00] VITALS: BP 131/81
[2020-06-23] MEDS: ATORVASTATIN 20 MG TAB PO SCH (22:22)
[2020-06-23] MEDS: traMADol HCL 50 MG TAB PO PRN (22:22)
[2020-06-24 05:00] VITALS: BP 126/69
[2020-06-24] MEDS: PIPERACILLIN-TAZOB 3.375GM 100 ML IV SCH ×4 (05:31→23:41)
[2020-06-24] MEDS: D5W 5% 1,000 ML IV SCH ×3 (06:51→19:25)
--- NOTE | 2020-06-24 08:00 | NUR ---
Patient refusing vitals, asked to be left alone so he could sleep.Respirations alix castro unlabored. Patient has no concerns or complaints at this time. Addendum: 06/24/20 at 1303 by Anjali Bettencourt RN wrong patient
[2020-06-24 09:09] VITALS: BP 124/69
[2020-06-24] MEDS: PANTOPRAZOLE 40 MG/10 ML VIAL INJ IV SCH ×2 (09:43→22:17)
[2020-06-24] MEDS: MULTIPLE VITAMINS W/ MINERALS TAB PO SCH (09:43)
[2020-06-24] MEDS: SODIUM CHLOR 0.9% PF (SALINE LOCK) 10ML VIAL/SYR IV SCH ×2 (09:43→22:18)
[2020-06-24] MEDS: amLODIPine BESYLATE 5 MG TAB PO SCH (09:45)
[2020-06-24] MEDS: METOPROLOL TARTRATE 25 MG TAB GT SCH ×2 (09:45→22:18)
[2020-06-24] MEDS: DOXYCYCLINE 100 MG TAB/CAP PO SCH ×2 (09:45→22:19)
[2020-06-24] MEDS: ENOXAPARIN SOD 40 MG/0.4 ML SYRINGE SC SCH (09:45)
[2020-06-24 12:25] VITALS: BP 126/74
[2020-06-24] MEDS: SODIUM FERR GLUC 62.5MG/5ML 125 MG in SODIUM CHL 0.9% 100 ML IV SCH (13:01)
[2020-06-24] MEDS: traMADol HCL 50 MG TAB PO PRN ×2 (13:20→22:15)
[2020-06-24 15:57] VITALS: BP 120/70
--- NOTE | 2020-06-24 17:20 | NUR ---
patient optifoam fell off during changing patient, new optifoam placed.
[2020-06-24 18:22] LABS: BUN/Creatinine Ratio 17.4; Calcium 9.8 mg/dL (8.5-10.1)
[2020-06-24 22:00] VITALS: BP 126/70
[2020-06-24] MEDS: ATORVASTATIN 20 MG TAB PO SCH (22:16)
[2020-06-25] MEDS: D5W 5% 1,000 ML IV SCH (02:05)
[2020-06-25 05:00] VITALS: BP 134/57
[2020-06-25] MEDS: PIPERACILLIN-TAZOB 3.375GM 100 ML IV SCH ×4 (05:30→23:43)
[2020-06-25 06:29] LABS: BUN/Creatinine Ratio 18.3; Calcium 9.8 mg/dL (8.5-10.1)
[2020-06-25 06:46] LABS: Potassium 2.8 mmol/L (3.5-5.1)
--- NOTE | 2020-06-25 06:46 | NUR ---
Critical Lab, Hospitalist paged: Received critical lab value at this time of a potassium value of 2.8. Called Hospitalist at this time to notify of critical lab. Waiting for call back.
--- NOTE | 2020-06-25 07:08 | NUR ---
Hospitalist called back: Hospitalist Mona called back. Updated about patients critical potassium value. New orders received. To place orders and endorse care to day shift nurse.
--- NOTE | 2020-06-25 07:30 | NUR ---
Opening Shift Note Assuming care of patient at this time. Patient is awake and alert. Patient denies pain. Patient shows no signs or symptoms of distress or shortness of breath. Bed is locked and lowered with side rails up x3. Instructed patient on the plan of care for today and to call for assistance as needed. Call light within reach. Will continue to round hourly and as needed.
[2020-06-25 09:00] VITALS: BP 125/88
[2020-06-25] MEDS: POTASSIUM CHL 20MEQ/100ML 100 ML IV SCH ×4 (09:25→16:45)
[2020-06-25] MEDS: PANTOPRAZOLE 40 MG/10 ML VIAL INJ IV SCH ×2 (09:28→22:22)
[2020-06-25] MEDS: ENOXAPARIN SOD 40 MG/0.4 ML SYRINGE SC SCH (09:29)
[2020-06-25] MEDS ORDERED: POTASSIUM CHL 20 Meq TABLET PO ONE (09:45)
[2020-06-25] MEDS: METOPROLOL TARTRATE 25 MG TAB GT SCH ×2 (10:00→22:22)
[2020-06-25] MEDS: amLODIPine BESYLATE 5 MG TAB PO SCH (10:00)
[2020-06-25] MEDS: DOXYCYCLINE 100 MG TAB/CAP PO SCH ×2 (10:10→22:22)
[2020-06-25] MEDS: traMADol HCL 50 MG TAB PO PRN (10:10)
[2020-06-25] MEDS: MULTIPLE VITAMINS W/ MINERALS TAB PO SCH (10:11)
[2020-06-25] MEDS: SODIUM CHLOR 0.9% PF (SALINE LOCK) 10ML VIAL/SYR IV SCH ×2 (10:12→22:21)
[2020-06-25 13:00] VITALS: BP 127/84
[2020-06-25] MEDS: SODIUM FERR GLUC 62.5MG/5ML 125 MG in SODIUM CHL 0.9% 100 ML IV SCH (13:24)
[2020-06-25] MEDS ORDERED: OXYCODONE W/ ACETAMINOPHEN 5/325MG TABLET PO PRN (14:00)
[2020-06-25] MEDS ORDERED: traMADol HCL 50 MG TAB PO PRN (14:30)
[2020-06-25] MEDS: POTASSIUM CHLORIDE 20 MEQ in D5W 5% 1,000 ML IV SCH (14:53)
[2020-06-25 17:00] VITALS: BP 122/80
--- NOTE | 2020-06-25 18:19 | NUR ---
Bowel Movement/Optifoam replacement Changed patient at this time. Moderate sized bowel movement found when turning patient. New Optifoam and z guard applied to patient's sacral area to replace soiled dressing.
--- NOTE | 2020-06-25 19:08 | NUR ---
Closing Shift Note Patient resting in bed. No distress noted. Report given. Will endorse care to the nutrition club ambassador RN.
--- NOTE | 2020-06-25 19:30 | NUR ---
received report from KELECHI Head
--- NOTE | 2020-06-25 21:15 | NUR ---
Family updated on pt status Family of [employer] updated on patient's status and condition. All questions and concerns addressed. verbalized understanding.
[2020-06-25 22:00] VITALS: BP 136/88
[2020-06-25] MEDS: ATORVASTATIN 20 MG TAB PO SCH (22:21)
[2020-06-25] MEDS: OXYCODONE W/ ACETAMINOPHEN 5/325MG TABLET PO PRN (22:21)
[2020-06-26] MEDS: POTASSIUM CHLORIDE 20 MEQ in D5W 5% 1,000 ML IV SCH ×2 (02:08→14:46)
--- NOTE | 2020-06-26 04:00 | NUR ---
pt has been restless all night despite pain meds given.paged hospitalist. waiting for call back
[2020-06-26] MEDS: OXYCODONE W/ ACETAMINOPHEN 5/325MG TABLET PO PRN ×2 (04:17→11:21)
[2020-06-26] MEDS: PIPERACILLIN-TAZOB 3.375GM 100 ML IV SCH ×2 (05:20→12:34)
[2020-06-26 05:40] VITALS: BP 127/87
[2020-06-26 07:00] LABS: Calcium 10.1 mg/dL (8.5-10.1); Potassium 3.5 mmol/L (3.5-5.1)
[2020-06-26 07:02] LABS: BUN/Creatinine Ratio 17.9
[2020-06-26 09:40] VITALS: BP 129/72
[2020-06-26] MEDS: amLODIPine BESYLATE 5 MG TAB PO SCH (10:00)
--- NOTE | 2020-06-26 10:00 | NUR ---
Family Update Daughter updated on patient's condition. Daughter is requesting to speak with MD. Informed daughter that this RN notified MD of her request to call yesterday and will notify MD again today. All questions and concerns addressed.
[2020-06-26] MEDS: DOXYCYCLINE 100 MG TAB/CAP PO SCH (11:21)
[2020-06-26] MEDS: MULTIPLE VITAMINS W/ MINERALS TAB PO SCH (11:21)
[2020-06-26] MEDS: PANTOPRAZOLE 40 MG/10 ML VIAL INJ IV SCH ×2 (11:21→22:51)
[2020-06-26] MEDS: METOPROLOL TARTRATE 25 MG TAB GT SCH (11:22)
[2020-06-26] MEDS: SODIUM CHLOR 0.9% PF (SALINE LOCK) 10ML VIAL/SYR IV SCH ×2 (11:30→22:51)
[2020-06-26] MEDS: ENOXAPARIN SOD 40 MG/0.4 ML SYRINGE SC SCH (11:30)
--- NOTE | 2020-06-26 12:07 | NUR ---
Nutrition Followup Notes Wt: 76.5 kg Pt was sleeping with a sitter at bedside. Pt has mittens on and sitter reports she feeds pt. Pt is with a pureed diet with inadequate oral intake aeb pt with an avg po intake of 38% x 2 days per Rn note. Sitter reports trying to feed pt breakfast, pt ate a little. Consider adding Glucerna 1 carton TID if pt PO intake continues to be poor. Est Energy needs: 6999-0260 kcals (23-25 kcal/kgBW), Est Protein needs: 51-68 gms/day (0.6-0.8g/kg BW 84.9kg r/t elevated RFTs) Will continue to monitor and reassess prn. LABS: BUN 42H, Creat 2.34H, Alb 1.7L, GLUC 118H GI: Pt with 2 BMs 06/26 per RN note BS: 13 mod risk. Refer to wound assessment report for full details PES: Altered nutrition related lab values r/t current/chronic medical condition aeb elev RFTs, low GFR, severe hypoalbuminemia Comments Will continue to monitor po intake, skin status, pertinent labs and weight trends. Will f/u in 3-5 days. 1) Consider adding Glucerna 1 carton TID 3) If albumin continues trending down with improved RFts, consider Prostat 1 pkt bid 4) Gradually advance pt to oral diet when medically feasible and as tolerated 5) Continue current plan of care
[2020-06-26] MEDS: SODIUM FERR GLUC 62.5MG/5ML 125 MG in SODIUM CHL 0.9% 100 ML IV SCH (12:33)
[2020-06-26 13:00] VITALS: BP 131/97
--- NOTE | 2020-06-26 16:00 | NUR ---
downstairs downstairs at this time. Per Nadja, staff at volunteer desk, is requesting medical records. Notified Nadja that medical records will have to be obtained from medical records office upon discharge. Nadja to notify patient's .
[2020-06-26 16:42] VITALS: BP 145/83
--- NOTE | 2020-06-26 17:03 | NUR ---
Call to [facility] Call to [facility] at this time to notify them of malfunctioning bed. Confirmation number is [id number].
[2020-06-26] MEDS: HYDROcodone-ACET 10/325MG TAB PO PRN ×2 (18:47→23:05)
--- NOTE | 2020-06-26 19:15 | NUR ---
Pain Management Dr. Serrano to see patient at this time. Continue [place] at this time.
--- NOTE | 2020-06-26 19:22 | NUR ---
Closing Shift Note Patient resting in bed. No distress noted. Report given. Will endorse care to the flexographic press plate setter RN.
[2020-06-26 22:00] VITALS: BP 104/55
[2020-06-26] MEDS: METOPROLOL TARTRATE 25 MG TAB PO SCH (22:00)
[2020-06-26] MEDS: ATORVASTATIN 20 MG TAB PO SCH (22:00)
[2020-06-27] VITALS (7 sets, daily range): BP systolic 116–134; BP diastolic 60–86
[2020-06-27] MEDS: POTASSIUM CHLORIDE 20 MEQ in D5W 5% 1,000 ML IV SCH ×2 (03:24→16:02)
[2020-06-27 08:00] LABS: Eosinophils # (auto) 0.1 10 ^3/uL (0-0.8); Eosinophils % (auto) 0.6 % (0.0-7.0); Hematocrit 20.2 % (41.0-53.0); Monocytes # (auto) 1.2 10 ^3/uL (0-1.3); Nucleated Red Blood Cells % 0.1 %
[2020-06-27 08:02] LABS: Basophils # (auto) 0.1 10 ^3/uL (0-0.2); Basophils % (auto) 0.4 % (0.0-2.0); Lymphocytes # (auto) 0.9 10 ^3/uL (0.4-5.4); Lymphocytes % (auto) 7.5 % (10.0-50.0); Mean Corpuscular Hemoglobin 32.9 pg (28.0-32.0); Mean Corpuscular Hgb Conc. 33.3 g/dL (32.0-36.0); Mean Corpuscular Volume 98.7 fL (80.0-100.0); Monocytes % (auto) 10.5 % (0.0-12.0); Neutrophils # (auto) 9.4 10 ^3/uL (1.6-8.6); Platelet Count (auto) 205 10^3/uL (140-450); Red Blood Cells 2.05 10^6/uL (4.5-5.90); Red Cell Distribution Width 14.4 % (11.8-14.3); White Blood Cell 11.6 10^3/uL (4.4-10.8)
[2020-06-27 08:07] LABS: Hemoglobin 6.7 g/dL (13.5-17.5)
--- NOTE | 2020-06-27 08:20 | NUR ---
Critical Hemoglobin Notified Hospitalist manager utilization of critical hemoglobin. Orders for transfusion received and entered.
[2020-06-27] MEDS: HYDROcodone-ACET 10/325MG TAB PO PRN (08:54)
[2020-06-27 09:07] LABS: Anion Gap 3 (5-15); BUN/Creatinine Ratio 17.1; Blood Urea Nitrogen 45 mg/dL (7-18); Calcium 10.7 mg/dL (8.5-10.1); Carbon Dioxide 25 mmol/L (21-32); Chloride 115 mmol/L (98-107); GFR African American 32 mL/min; GFR Non-African American 26 mL/min; Glucose 100 mg/dL (74-106); Potassium 3.9 mmol/L (3.5-5.1); Sodium 143 mmol/L (136-145)
[2020-06-27] MEDS: ENOXAPARIN SOD 40 MG/0.4 ML SYRINGE SC SCH (09:41)
[2020-06-27] MEDS: PANTOPRAZOLE 40 MG/10 ML VIAL INJ IV SCH ×2 (09:41→22:47)
[2020-06-27] MEDS: amLODIPine BESYLATE 5 MG TAB PO SCH (09:42)
[2020-06-27] MEDS: METOPROLOL TARTRATE 25 MG TAB PO SCH ×2 (09:42→22:47)
[2020-06-27] MEDS: MULTIPLE VITAMINS W/ MINERALS TAB PO SCH (09:43)
--- NOTE | 2020-06-27 10:30 | NUR ---
WOUND CARE NOTE: IN TO SEE PATIENT AT THIS TIME FOR WOUND REEVALUATION. PATIENT HAS CURRENT RADHA SCORE OF 13. PATIENT HAS SITTER AT BEDSIDE. HE IS ABLE TO SELF TURN/REPOSITION, BUT REQUIRES ASSISTANCE BY SITTER. PATIENT'S DTI TO THE RIGHT ANKLE ALMOST RESOLVED, WITH SKIN NOW BLANCHABLE RED, PINK PERIWOUND. SKIN REMAINS INTACT, LEFT OPEN TO AIR. SACRAL WOUND HAS CONTINUED TO EVOLVE, IS LARGE, MEASURING 3 X3 CM. DRESSING APPLIED PER MD ORDER. PATIENT TOLERATED WELL, NOTING NO PAIN BY PATIENT . PATIENT REPOSITIONED ONTO RIGHT SIDE, REDISTRIBUTING PRESSURE POINTS WITH PILLOWS. NO OTHER SKIN INTEGRITY ISSUES SEEN AT THIS TIME. RECOMMEND: CONTINUATION WITH ALL WOUND CARE ORDERS PREVIOUSLY PRESCRIBED BY MD. WOUND CARE TEAM WILL CONTINUE TO MONITOR. Addendum: 06/27/20 at 1513 by Prachi Falcon RN Amended: Links added.
--- NOTE | 2020-06-27 11:45 | NUR ---
Transfusion Notified patient's sister by phone of transfusion order. She had already given telephone consent for transfusion.
--- NOTE | 2020-06-27 11:50 | NUR ---
Transfusion began after verifying with another RN, vitals checked and entered. Will continue to monitor patient for any adverse reactions. Sitter in attendance
--- NOTE | 2020-06-27 15:27 | NUR ---
Transfusion ended No adverse reaction noted.
--- NOTE | 2020-06-27 16:30 | NUR ---
PICC Line dressing change PICC line dressing change completed using sterile technique as per protocol.
[2020-06-27] MEDS: SODIUM CHLOR 0.9% PF (SALINE LOCK) 10ML VIAL/SYR IV SCH ×2 (16:52→22:47)
[2020-06-27] MEDS: ATORVASTATIN 20 MG TAB PO SCH (22:47)
[2020-06-28] MEDS: POTASSIUM CHLORIDE 20 MEQ in D5W 5% 1,000 ML IV SCH ×2 (04:40→15:57)
[2020-06-28 05:00] VITALS: BP 138/65
[2020-06-28 06:05] LABS: Basophils # (auto) 0 10 ^3/uL (0-0.2); Eosinophils # (auto) 0 10 ^3/uL (0-0.8); Eosinophils % (auto) 0.1 % (0.0-7.0); Hematocrit 20.8 % (41.0-53.0); Mean Corpuscular Hgb Conc. 33.2 g/dL (32.0-36.0); Monocytes # (auto) 1.3 10 ^3/uL (0-1.3); Nucleated Red Blood Cells % 0.1 %
[2020-06-28 06:08] LABS: Basophils % (auto) 0.2 % (0.0-2.0); Lymphocytes # (auto) 0.7 10 ^3/uL (0.4-5.4); Lymphocytes % (auto) 6.3 % (10.0-50.0); Mean Corpuscular Hemoglobin 31.5 pg (28.0-32.0); Mean Corpuscular Volume 94.8 fL (80.0-100.0); Monocytes % (auto) 11.5 % (0.0-12.0); Neutrophils # (auto) 9.2 10 ^3/uL (1.6-8.6); Neutrophils % (auto) 81.9 % (37.0-80.0); Platelet Count (auto) 226 10^3/uL (140-450); Red Blood Cells 2.19 10^6/uL (4.5-5.90); Red Cell Distribution Width 16.6 % (11.8-14.3); White Blood Cell 11.3 10^3/uL (4.4-10.8)
[2020-06-28 06:14] LABS: Hemoglobin 6.9 g/dL (13.5-17.5)
--- NOTE | 2020-06-28 06:15 | NUR ---
CRITICAL HEMOGLOBIN Critical hemoglobin received of 6.9. Hospitalist has been paged.
[2020-06-28 06:21] LABS: Potassium 3.8 mmol/L (3.5-5.1)
[2020-06-28 06:26] LABS: BUN/Creatinine Ratio 19.6; Calcium 11.2 mg/dL (8.5-10.1)
--- NOTE | 2020-06-28 07:02 | NUR ---
HOSPITALIST CALL BACK Notified hospitalist about the patient's critical hemoglobin of 6.9. Received order for PRBC 1 unit.
[2020-06-28] MEDS: amLODIPine BESYLATE 5 MG TAB PO SCH (10:00)
[2020-06-28] MEDS: PANTOPRAZOLE 40 MG/10 ML VIAL INJ IV SCH ×2 (10:00→22:30)
[2020-06-28] MEDS: METOPROLOL TARTRATE 25 MG TAB PO SCH ×2 (10:00→22:30)
[2020-06-28] MEDS: MULTIPLE VITAMINS W/ MINERALS TAB PO SCH (10:00)
[2020-06-28] MEDS: SODIUM CHLOR 0.9% PF (SALINE LOCK) 10ML VIAL/SYR IV SCH ×2 (10:00→22:30)
--- NOTE | 2020-06-28 11:05 | NUR ---
Hold PT today per Dr. Marr and nursing. Will reassess tomorrow.
[2020-06-28 11:12] VITALS: BP 116/70
--- NOTE | 2020-06-28 11:19 | NUR ---
DR. HAMPTON AT BEDSIDE.
--- NOTE | 2020-06-28 11:20 | NUR ---
DR. ELIZONDO AT BEDSIDE ASSESSING PT.
--- NOTE | 2020-06-28 11:21 | NUR ---
PT IS DNR NOW PER DR. HAMPTON.
[2020-06-28 11:28] VITALS: BP 131/69
[2020-06-28] MEDS ORDERED: hydrALAZINE HCL 20 MG/ML VL IV PRN (11:45)
[2020-06-28 11:58] VITALS: BP 105/71
[2020-06-28 13:38] VITALS: BP 133/75
[2020-06-28] MEDS: DexAMETHasone SOD PHOS 10MG/1ML VIAL INJ IV SCH ×2 (13:42→18:30)
--- NOTE | 2020-06-28 14:06 | NUR ---
[facility] AT [facility]. Signed: 06/28/20 at 1406 by Slick May RN RN
--- NOTE | 2020-06-28 14:07 | NUR ---
OBTAINED NEW ORDER FROM DR. HAMPTON MORPHINE 2MG IVP Q4HR PRN FOR MODERATE TO SEVERE PAIN, ORDER READ BACK AND VERIFIED WILL CARRY OUT ORDER.
[2020-06-28] MEDS: MORPHINE SULF INJ 2 MG/ML SYRINGE 1ML IV PRN ×3 (14:31→22:30)
--- NOTE | 2020-06-28 18:43 | NUR ---
CALLED PHARMACY VIA 8166 FORRR [id number] IN D5%. PHARMACIST STATED WILL SEND IT UP IN 15MIN.
--- NOTE | 2020-06-28 19:20 | NUR ---
Opening Shift Note Assumed care of patient. Patient is lethargic but laying comfortable in bed. Family is present at bedside. Sitter is also present at bedside. No S/S of distress/SOB or pain. Bed is locked in lowest position with call light within reach. Instructed family on POC. Will continue to monitor for changes Q1hr and PRN.
[2020-06-28 22:00] VITALS: BP 121/65
[2020-06-28] MEDS: ATORVASTATIN 20 MG TAB PO SCH (22:30)
[2020-06-29 05:00] VITALS: BP 140/71
[2020-06-29] MEDS: DexAMETHasone SOD PHOS 10MG/1ML VIAL INJ IV SCH ×2 (06:00)
[2020-06-29 06:57] LABS: BUN/Creatinine Ratio 22.6; Calcium 11.5 mg/dL (8.5-10.1); Potassium 4.1 mmol/L (3.5-5.1)
[2020-06-29] MEDS: POTASSIUM CHLORIDE 20 MEQ in D5W 5% 1,000 ML IV SCH (07:30)
--- NOTE | 2020-06-29 08:00 | NUR ---
Allaadtahira IV completed and given by night guard KELECHI per report. Addendum: 06/29/20 at 0909 by Donta Tracey RN 30: Latest K-4.1 held present IVF.
[2020-06-29] MEDS: MULTIPLE VITAMINS W/ MINERALS TAB PO SCH ×2 (10:00→10:18)
[2020-06-29] MEDS: amLODIPine BESYLATE 5 MG TAB PO SCH (10:00)
[2020-06-29] MEDS: PANTOPRAZOLE 40 MG/10 ML VIAL INJ IV SCH ×2 (10:18→21:51)
[2020-06-29] MEDS: SODIUM CHLOR 0.9% PF (SALINE LOCK) 10ML VIAL/SYR IV SCH ×2 (10:18→21:57)
[2020-06-29] MEDS: METOPROLOL TARTRATE 25 MG TAB PO SCH ×2 (10:22→21:56)
[2020-06-29] MEDS ORDERED: TPN PER PHARMACY 0 ML IV SCH (12:00)
[2020-06-29 12:20] LABS: Albumin 1.8 g/dL (3.4-5.0); Calcium 11.4 mg/dL (8.5-10.1); Magnesium 2.7 mg/dL (1.6-2.6); Potassium 4.1 mmol/L (3.5-5.1)
[2020-06-29 12:25] LABS: BUN/Creatinine Ratio 22.6; Bilirubin, Total 0.9 mg/dL (0.2-1.0); Phosphorus 5.1 mg/dL (2.5-4.90); Pre Albumin 8.2 mg/dL (20.0-40.0); Total Protein 9.4 g/dL (6.4-8.2)
[2020-06-29] MEDS: MORPHINE SULF INJ 2 MG/ML SYRINGE 1ML IV PRN (14:01)
--- NOTE | 2020-06-29 14:10 | NUR ---
Nutrition Followup Notes Wt: 76.5 kg Pt was sleeping with a sitter at bedside. Pt is still with mittens on. Pt intake is still inadequate aeb pt with 0% po intake 9/3 per Rn note. Pt with 50% po intake 9/2 per Rn note. Consider alternate nutrition per family/caregiver request for nutrition for pt and per MD approval Est Energy needs: 8097-4472 kcals (23-25 kcal/kgBW), Est Protein needs: 51-68 gms/day (0.6-0.8g/kg BW 84.9kg r/t elevated RFTs) Will continue to monitor and reassess prn. Consider Glucerna 1.2 at 60 ml/hr if TF is considered LABS: BUN 65H, Creat 2.88H, Alb 1.8L, GLUC 169H, Ca 11.4H GI: Pt with 2 BMs 9/2 per RN note BS: 11 high risk. Refer to wound assessment report for full details PES: Altered nutrition related lab values r/t current/chronic medical condition aeb elev RFTs, low GFR, severe hypoalbuminemia Comments Will continue to monitor po intake, skin status, pertinent labs and weight trends. Will f/u in 3-5 days. 1) Consider alternate nutrition per family/caregiver and per MD approval 3) If albumin continues trending down with improved RFts, consider Prostat 1 pkt bid 4) Gradually advance pt to oral diet when medically feasible and as tolerated 5) Continue current plan of care
--- NOTE | 2020-06-29 16:40 | NUR ---
Patient is very agitated and pulling out tubes. Dr. Marr paged and returned call. Orders received.
[2020-06-29] MEDS ORDERED: LORazepam 2MG/ML-1ML VIAL IV ONE (16:45)
--- NOTE | 2020-06-29 19:40 | NUR ---
Opening Shift Note Assumed care of patient. Patient lethargic. Family at bedside. Patient arousable to name. Sitter present at bedside. No S/S of distress/SOB or pain. Safety measures maintained by keeping the bed locked in lowest position, 2 side rails up, personal items and call light within reach. Will continue to monitor for changes Q1hr and PRN.
[2020-06-29] MEDS ORDERED: AMINO ACID INFUSION IN D5W 2,000 ML IV NR (20:00)
[2020-06-29] MEDS: ATORVASTATIN 20 MG TAB PO SCH (21:56)
[2020-06-29 22:00] VITALS: BP 136/72
[2020-06-29] MEDS: ACCU-CHEK COMFORT CURVE STRIP VI SCH (23:37)
[2020-06-29] MEDS: InsuLIN REG 1unit/0.01ml Soln (100units/ml) SC SCH (23:39)
[2020-06-30 05:00] VITALS: BP 125/71
[2020-06-30] MEDS ORDERED: DEXTROSE (50%) 50ML SYRG IV SCH (05:00)
[2020-06-30] MEDS: ACCU-CHEK COMFORT CURVE STRIP VI SCH ×3 (05:25→17:55)
[2020-06-30] MEDS: InsuLIN REG 1unit/0.01ml Soln (100units/ml) SC SCH ×3 (05:25→18:00)
--- NOTE | 2020-06-30 07:40 | NUR ---
Opening Shift Note Assumed care of patient, awake and alert. No S/S of distress/SOB or pain. Instructed on POC and to call for assist PRN, will continue to monitor for changes Q1hr and PRN. Bed locked in lowest position with two side rails up and call light in reach.
[2020-06-30 08:06] LABS: Immunoglobulin G, Serum 5742 mg/dL (603-1613)
[2020-06-30 08:20] LABS: Basophils # (auto) 0 10 ^3/uL (0-0.2); Eosinophils # (auto) 0 10 ^3/uL (0-0.8); Hematocrit 22.6 % (41.0-53.0); Lymphocytes # (auto) 0.2 10 ^3/uL (0.4-5.4); Monocytes # (auto) 1.2 10 ^3/uL (0-1.3); Neutrophils # (auto) 17.4 10 ^3/uL (1.6-8.6); Red Blood Cells 2.45 10^6/uL (4.5-5.90); White Blood Cell 18.8 10^3/uL (4.4-10.8)
[2020-06-30 08:22] LABS: Basophils % (auto) 0.1 % (0.0-2.0); Hemoglobin 7.6 g/dL (13.5-17.5); Lymphocytes % (auto) 1.1 % (10.0-50.0); Mean Corpuscular Hemoglobin 31.1 pg (28.0-32.0); Mean Corpuscular Hgb Conc. 33.7 g/dL (32.0-36.0); Mean Corpuscular Volume 92.1 fL (80.0-100.0); Monocytes % (auto) 6.3 % (0.0-12.0); Neutrophils % (auto) 92.5 % (37.0-80.0); Nucleated Red Blood Cells % 0.1 %; Platelet Count (auto) 273 10^3/uL (140-450); Red Cell Distribution Width 19.4 % (11.8-14.3)
[2020-06-30 08:34] LABS: Albumin 1.7 g/dL (3.4-5.0); Calcium 10.4 mg/dL (8.5-10.1); Magnesium 2.8 mg/dL (1.6-2.6)
[2020-06-30 08:40] LABS: BUN/Creatinine Ratio 29.3; Bilirubin, Total 0.8 mg/dL (0.2-1.0); Phosphorus 4.7 mg/dL (2.5-4.90); Total Protein 8.8 g/dL (6.4-8.2)
[2020-06-30 09:00] VITALS: BP 125/71
--- NOTE | 2020-06-30 09:05 | NUR ---
RECEIVED A CRITICAL LAB BUN 99, REPORTED BY KATELYN IN LAB.
--- NOTE | 2020-06-30 09:10 | NUR ---
RECEIVED A CALL FROM COTY FROM [facility] TRANSFER ADMITTING AREA [phone] COTY STATES THERE IS A DOCTOR THAT SPOKE TO ANGIE REGARDING TRANSFER. THE PHYSICIAN IS DR ARELIS ANSARI. I AM UNAWARE OF TRANSFER AND SEE NO NOTES REGARDING ANY TRANSFER, I WILL NOTIFY ROUNDING PHYSICIAN TODAY, AND LET THEM KNOW OF [facility] PHONE CALL.
[2020-06-30] MEDS: amLODIPine BESYLATE 5 MG TAB PO SCH (10:00)
[2020-06-30] MEDS: METOPROLOL TARTRATE 25 MG TAB PO SCH ×2 (10:00→21:31)
[2020-06-30] MEDS: SODIUM CHLOR 0.9% PF (SALINE LOCK) 10ML VIAL/SYR IV SCH ×2 (10:00→21:30)
[2020-06-30] MEDS: MULTIPLE VITAMINS W/ MINERALS TAB PO SCH (10:00)
[2020-06-30] MEDS: SODIUM BICARBONATE 50ML VIAL 50 ML in D5W 5% 1,000 ML IV SCH (11:18)
[2020-06-30] MEDS: PANTOPRAZOLE 40 MG/10 ML VIAL INJ IV SCH ×2 (11:18→21:30)
[2020-06-30] MEDS: MORPHINE SULF INJ 2 MG/ML SYRINGE 1ML IV PRN (12:47)
--- NOTE | 2020-06-30 12:53 | NUR ---
7861 06/30/20 Contacted [facility] admission department at [phone] regarding transferring patient to [facility]. Spoke with admission rent and miscellaneous remittance clerkrenata Hernández who stated the plan was to transfer pt as an inpatient to [facility] under the care of Dr Darby but patient's was not financially cleared under his current insurance. Betty stated patient can be seen as an outpatient under his insurance. Betty also stated that Dr Darby wanted to speak with provider caring for patient. I provided Betty with contact information for Dr Sandy Marr. Addendum: 06/30/20 at 1453 by Marcy Diaz RN [phone] 06/30/20 - Contacted spouse at [phone] to inform her of status of transfer to [facility] (pt was not financially cleared for transfer under current insurance).
[2020-06-30 13:00] VITALS: BP 141/84
--- NOTE | 2020-06-30 16:19 | NUR ---
ORDERS FROM DR ADAMS RECEIVED FOR ATIVAN 0.5MG BID PRN .
[2020-06-30] MEDS ORDERED: LORazepam 2MG/ML-1ML VIAL IV PRN (16:30)
--- NOTE | 2020-06-30 17:31 | NUR ---
1520 06/30/20 - faxed to face sheet, order for hospice eval to [facility] at [phone], [facility] at [phone] and [facility] at [phone], H/P, progress notes. Pending review and availability.
[2020-06-30 18:53] LABS: Protein, Urine 78.5 mg/dL (0.0-11.9)
[2020-06-30] MEDS ORDERED: TPN PER PHARMACY IV NR ×5 (20:00)
[2020-06-30] MEDS: ATORVASTATIN 20 MG TAB PO SCH (21:30)
[2020-07-01] MEDS: ACCU-CHEK COMFORT CURVE STRIP VI SCH ×4 (00:04→17:59)
[2020-07-01] MEDS: InsuLIN REG 1unit/0.01ml Soln (100units/ml) SC SCH ×4 (00:13→18:00)
[2020-07-01] MEDS: SODIUM BICARBONATE 50ML VIAL 50 ML in D5W 5% 1,000 ML IV SCH ×2 (00:30→14:45)
[2020-07-01 03:07] LABS: Sodium Urine 46 mmol/L (40-220)
[2020-07-01 03:09] LABS: Creatinine, Urine 42 mg/dL (30.0-125.0)
--- NOTE | 2020-07-01 06:00 | NUR ---
Wound Care Per MD orders, provided wound care and changed optifoam to scarum. Will continue to monitor Q1 and PRN.
[2020-07-01 06:55] LABS: Albumin 1.7 g/dL (3.4-5.0); Calcium 9.8 mg/dL (8.5-10.1); Potassium 3.5 mmol/L (3.5-5.1)
[2020-07-01 07:01] LABS: BUN/Creatinine Ratio 30.7; Bilirubin, Total 0.7 mg/dL (0.2-1.0); Magnesium 2.8 mg/dL (1.6-2.6); Phosphorus 3.5 mg/dL (2.5-4.90); Total Protein 8.3 g/dL (6.4-8.2)
--- NOTE | 2020-07-01 07:08 | NUR ---
Critical Lab Received call for critical BUN. Made dayshift nurse aware, will endorse care.
--- NOTE | 2020-07-01 07:15 | NUR ---
End of Shift Note Endorsed care to dayshift RN. At this time patient has no s/s of distress or SOB.
--- NOTE | 2020-07-01 07:40 | NUR ---
Opening Shift Note Assumed care of patient at this time patient asleep. No S/S of distress/SOB or pain. I will continue to monitor for changes Q1hr and PRN. Bed locked in lowest position with two side rails up and call light in reach.
[2020-07-01 09:00] VITALS: BP 103/59
[2020-07-01] MEDS: PANTOPRAZOLE 40 MG/10 ML VIAL INJ IV SCH ×2 (09:52→21:48)
[2020-07-01] MEDS: SODIUM CHLOR 0.9% PF (SALINE LOCK) 10ML VIAL/SYR IV SCH ×2 (09:52→21:48)
[2020-07-01] MEDS: MULTIPLE VITAMINS W/ MINERALS TAB PO SCH (10:00)
[2020-07-01] MEDS: METOPROLOL TARTRATE 25 MG TAB PO SCH ×2 (10:00→21:48)
[2020-07-01] MEDS: amLODIPine BESYLATE 5 MG TAB PO SCH (10:00)
[2020-07-01 13:00] VITALS: BP 115/62
[2020-07-01 17:00] VITALS: BP 118/66
--- NOTE | 2020-07-01 17:11 | NUR ---
1420 07/01/20 - Contacted by Mary from [facility], who stated she had spoken with the family extensively and family had accepted hospice services with [facility] upon discharge.
[2020-07-01] MEDS ORDERED: TPN PER PHARMACY IV NR ×9 (20:00)
--- NOTE | 2020-07-01 20:23 | NUR ---
Contacted [facility] Spoke with Gail, from answering services , per Gail she will inform the diffusion operator nurse from [facility] to call me back to confirm set up with [facility]. Awaiting call back. Will continue to monitor patient Q1 and PRN.
[2020-07-01] MEDS: ATORVASTATIN 20 MG TAB PO SCH (21:48)
[2020-07-01 22:06] VITALS: BP 106/47
--- NOTE | 2020-07-01 23:11 | NUR ---
Spoke with family member Chasidy Updated on patient's status. Per Chasidy, her and her family have not made a final decision regarding Hospice placement. She states that they are currently exploring their options for hospice. All questions and concerns answered. Will continue to monitor patient Q1 and PRN.
[2020-07-02] MEDS: InsuLIN REG 1unit/0.01ml Soln (100units/ml) SC SCH ×4 (00:51→17:34)
[2020-07-02] MEDS ORDERED: SODIUM BICARBONATE 8.4 % INJ 50ML VIAL IV ONE (04:16)
[2020-07-02] MEDS: SODIUM BICARBONATE 50ML VIAL 50 ML in D5W 5% 1,000 ML IV SCH ×2 (04:28→17:34)
[2020-07-02 05:07] VITALS: BP 125/67
[2020-07-02] MEDS: ACCU-CHEK COMFORT CURVE STRIP VI SCH ×4 (05:41→17:33)
--- NOTE | 2020-07-02 07:10 | NUR ---
End of Shift Note Endorsed care to dayshift RN. At this time patient has no s/s of distress or SOB. Sitter at bedside.
--- NOTE | 2020-07-02 07:30 | NUR ---
Opening Shift Note Assumed patient care from ZOYA LORENZ. Patient currently laying bed, HOB >30 positioned on left side and on specialty mattress. Patient had small bowel movement. Patient cleaned, wound care performed, optifoam in place. Partial linen change performed. Safety precautions in place, sitter at bedside. Will continue to monitor. Addendum: 07/02/20 at 1828 by GENARO VAZQUEZ RN RN Patient is AOx1-2.
[2020-07-02 09:00] VITALS: BP 118/70
[2020-07-02] MEDS: amLODIPine BESYLATE 5 MG TAB PO SCH (10:00)
[2020-07-02] MEDS: METOPROLOL TARTRATE 25 MG TAB PO SCH ×2 (10:00→21:51)
[2020-07-02] MEDS: PANTOPRAZOLE 40 MG/10 ML VIAL INJ IV SCH ×2 (10:26→21:32)
[2020-07-02] MEDS: SODIUM CHLOR 0.9% PF (SALINE LOCK) 10ML VIAL/SYR IV SCH ×2 (10:27→21:32)
[2020-07-02] MEDS: MULTIPLE VITAMINS W/ MINERALS TAB PO SCH (10:28)
[2020-07-02 13:00] VITALS: BP 116/80
[2020-07-02] MEDS: HYDROcodone-ACET 10/325MG TAB PO PRN (13:46)
--- NOTE | 2020-07-02 15:00 | NUR ---
TOOK PATIENT A SPONGE BATH AND SHAVED HIM WELL
--- NOTE | 2020-07-02 15:28 | NUR ---
Family Spoke with daughter, Chasidy regarding patient's plan of care. Per Chasidy, patient's family chose [facility] for discharge needs. All questions answered.
--- NOTE | 2020-07-02 15:45 | NUR ---
SS Called Spoke with Malena regarding Patient's family decision to continue with [facility]. Per family request, inquired about TPN. Per Malena, hospice agencies do not provide TPN on discharge. Patient would require PEG tube if family wishes for hospice to continue feedings. Per Malena, patient's family should discuss with attending physician regarding PEG tube. Patient's family notified. Per patient's family would like to speak with MD regarding options for continued nutrition as patient is a poor feeder-patient eats approximately 25% of meals.
[2020-07-02 17:10] VITALS: BP 112/57
--- NOTE | 2020-07-02 17:49 | NUR ---
Wound Care Performed wound care to sacral area per wound care recommendations. Patient tolerated well, no signs of distress at this time. Patient repositioned from supine position to positioned on his right side with HOB >30 degrees; feet/ankles off loaded with pillow. No signs of distress at this time. Respirations even and unlabored. Safety precautions in place, sitter at bedside. Will continue to monitor.
--- NOTE | 2020-07-02 19:18 | NUR ---
Openning note Assumed care of patient, patient is alert x2. selft and place. No sob or distress noted. Bed is locked in lowest position, side rails up x2. Sitter at bedside. Call light within reach. Will continue to monitor q1hr and PRN.
[2020-07-02] MEDS: ATORVASTATIN 20 MG TAB PO SCH (21:32)
[2020-07-02 22:00] VITALS: BP 127/69
[2020-07-03 05:00] VITALS: BP 103/56
[2020-07-03] MEDS: ACCU-CHEK COMFORT CURVE STRIP VI SCH ×2 (05:40)
[2020-07-03] MEDS: InsuLIN REG 1unit/0.01ml Soln (100units/ml) SC SCH ×2 (06:00)
--- NOTE | 2020-07-03 07:30 | NUR ---
Opening Shift Note Assumed care of patient, awake and alert. No S/S of distress/SOB or pain. Instructed on POC and to call for assist PRN, will continue to monitor for changes Q1hr and PRN. Fall precautions in place per safety protocol. medical attendant at bedside for patient safety.
[2020-07-03 09:00] VITALS: BP 106/66
[2020-07-03] MEDS: SODIUM BICARBONATE 50ML VIAL 50 ML in D5W 5% 1,000 ML IV SCH (09:11)
[2020-07-03] MEDS: METOPROLOL TARTRATE 25 MG TAB PO SCH (09:11)
[2020-07-03] MEDS: amLODIPine BESYLATE 5 MG TAB PO SCH (09:11)
[2020-07-03] MEDS: SODIUM CHLOR 0.9% PF (SALINE LOCK) 10ML VIAL/SYR IV SCH (09:11)
[2020-07-03] MEDS: MULTIPLE VITAMINS W/ MINERALS TAB PO SCH (09:11)
[2020-07-03] MEDS: PANTOPRAZOLE 40 MG/10 ML VIAL INJ IV SCH (09:11)
--- NOTE | 2020-07-03 10:09 | NUR ---
I placed call out to Dr. Marr to discuss the plan of care for this patient (Hospice vs [facility] Transfer)-awaiting return call.
--- NOTE | 2020-07-03 10:12 | NUR ---
I spoke with Dr. Marr regarding the plan of care for this patient-she said patient will be going home on [facility], not being transferred to [facility]. I spoke with Chris at [facility] [phone] and made him aware.
--- NOTE | 2020-07-03 10:30 | NUR ---
Hospitalist MD Marr at bedside, aware of patient status. New orders to DC BS Checks, TPN and walker received. Orders read back and verified. Will carry out new orders and cont to monitor patient.
[2020-07-03 13:00] VITALS: BP 113/81
--- NOTE | 2020-07-03 14:02 | NUR ---
Nutrition Followup Notes Wt: 76.5 kg Pt was resting in bed at time of rounds. Pt was receiving TPN, per RN note MD ordered TPN DC. Pt with inadequate po intake aeb pt with 15%, 25%, 75% of last three meals per Rn note. Pt to dc on hospice per MD order. Consider nutrition and feeding per Md and family wishes. Est Energy needs: 6160-6133 kcals (23-25 kcal/kgBW), Est Protein needs: 51-68 gms/day (0.6-0.8g/kg BW 84.9kg r/t elevated RFTs) Will continue to monitor and reassess prn. LABS: BUN 103H, Creat 3.36H, Alb 1.7L GI: Pt with 3 BMs 07/03 per RN note BS: 15 mod risk. Refer to wound assessment report for full details PES: Altered nutrition related lab values r/t current/chronic medical condition aeb elev RFTs, low GFR, severe hypoalbuminemia Comments Will continue to monitor po intake, skin status, pertinent labs and weight trends. Will f/u in 3-5 days. 1) Consider alternate nutrition per family/caregiver and per MD approval 3) If albumin continues trending down with improved RFts, consider Prostat 1 pkt bid 4) Gradually advance pt to oral diet when medically feasible and as tolerated 5) Continue current plan of care
[2020-07-03 14:12] VITALS: BP 108/70
--- NOTE | 2020-07-03 15:01 | NUR ---
Pt declined PT treatment toady. Will attempt again tomorrow.
--- NOTE | 2020-07-03 15:22 | NUR ---
re-assessment Patients jude Umaña has accepted hospice with [facility]. Dylan Hernandez at [facility] medication and equipment will be delivered to patients home by 6pm. Safety care transport will transport patient home at ^pm. Chasidy and Courtney LORENZ have been notified. Addendum: 07/03/20 at 1526 by Malena DODD Amended: Links added.
--- NOTE | 2020-07-03 16:30 | NUR ---
Walker catheter dc'd Order to discontinue walker catheter. Walker dc'd with clean technique following deflation of balloon. Patient tolerated well with no complaints of pain. Continue care.
[2020-07-03 17:00] VITALS: BP 110/61
--- NOTE | 2020-07-03 19:30 | NUR ---
Discharge instructions given as ordered. Encourage to follow up with PMD as instructed. All questions and concerns addressed. Patient verbalized understanding. Medication reconciliation form completed and copy given to patient. PICC removed with catheter intact, pressure dressing applied. Telemetry unit returned to ICU. Patient is being transported home with transportation services. No distress noted at time of departure.
[2020-07-03 19:36] VITALS: BP 121/70
== END 2020-07-03 19:35 | disposition hospice, home (50) | DRG 870 ==
LOC: EDBD 07:34 → ER 07:34 → TELE 07:35 → ICU WEST 06-12 07:33 → WEST WING 06-21 17:58 → TELE-WESTW 06-21 23:58
PROVIDERS: ADMIT Hospitalist; ATTEND Internal Medicine Nephrology
PROC: 5A1955Z Respiratory Ventilation, Greater than 96 Consecutive Hours (ICD-10-PCS; principal; 2020-06-11)
PROC: 0BH17EZ Insertion of Endotracheal Airway into Trachea, Via Natural or Artificial Opening (ICD-10-PCS; 2020-06-11)
PROC: 30233N1 Transfusion of Nonautologous Red Blood Cells into Peripheral Vein, Percutaneous Approach (ICD-10-PCS; 2020-06-27)
DX: A41.9 Sepsis, unspecified organism (principal); J96.01 Acute respiratory failure with hypoxia; J69.0 Pneumonitis due to inhalation of food and vomit; G93.41 Metabolic encephalopathy; E43 Unspecified severe protein-calorie malnutrition; N17.0 Acute kidney failure with tubular necrosis; I21.A1 Myocardial infarction type 2; R65.21 Severe sepsis with septic shock; C90.01 Multiple myeloma in remission; I13.0 Hypertensive heart and chronic kidney disease with heart failure and stage 1 through stage 4 chronic kidney disease, or unspecified chronic kidney disease; N39.0 Urinary tract infection, site not specified; I50.22 Chronic systolic (congestive) heart failure; C79.89 Secondary malignant neoplasm of other specified sites; D62 Acute posthemorrhagic anemia; D68.59 Other primary thrombophilia; E87.0 Hyperosmolality and hypernatremia; Z99.11 Dependence on respirator [ventilator] status; R29.6 Repeated falls; E83.52 Hypercalcemia; I25.10 Atherosclerotic heart disease of native coronary artery without angina pectoris; M54.10 Radiculopathy, site unspecified; N18.3 Chronic kidney disease, stage 3 (moderate); Z95.1 Presence of aortocoronary bypass graft; I71.4 Abdominal aortic aneurysm, without rupture; D63.8 Anemia in other chronic diseases classified elsewhere; J43.8 Other emphysema; N28.89 Other specified disorders of kidney and ureter; D89.2 Hypergammaglobulinemia, unspecified; E87.5 Hyperkalemia; E87.6 Hypokalemia; G89.29 Other chronic pain; M48.061 Spinal stenosis, lumbar region without neurogenic claudication; M48.04 Spinal stenosis, thoracic region; Z66 Do not resuscitate; Z20.828 Contact with and (suspected) exposure to other viral communicable diseases; Z68.22 Body mass index [BMI] 22.0-22.9, adult; Z98.61 Coronary angioplasty status
CPT/HCPCS: 31500; 36415; 36569; 36600; 70450; 71045; 71250; 71275; 72131; 74176; 76775; 80048; 80053; 80061; 80307; 81001; 82040; 82140; 82150; 82550; 82570; 82784; 82805; 82962; 83010; 83036; 83540; 83550; 83605; 83615; 83690; 83735; 83880; 83883; 83935; 83970; 84100; 84155; 84156; 84165; 84300; 84478; 84484; 85007; 85025; 85027; 85045; 85379; 85610; 85730; 86160; 86334; 86335; 86850; 86880; 86900; 86901; 86920; 87040; 87070; 87081; 87086; 87205; 87426; 92610; 93306; 93970; 94002; 94003; 94640; 97110; 97530; 99291; A4565; A4618; C9113; G0378; J0330; J0696; J1100; J1815; J2001; J2185; J2250; J2405; J2543; J2704; J3480; J3490; J7060